=== PATIENT | male | born 1955 | race Caucasian/White ===

== ENCOUNTER 2019-02-22 13:44 | Outpatient (REF) | payer MEDICAID, SELFPAY ==
[2019-02-22 20:41] LABS: HGB 15.7 g/dL (13.5-17.5); Mean Corp. HGB Concentration 33.4 g/dL (32.0-36.0); Mean Corpuscular Hemoglobin 32.7 pg (27.0-33.0); Mean Corpuscular Volume 97.9 fL (80-95); Mean Platelet Volume 11.1 fL (8.0-11.0); Platelet Count 239 x1000/uL (130-400); RBC Distribution Width 13.6 % (11.8-14.1); White Blood Cell Count 6.12 k/cumm (4.4-10.8)
[2019-02-22 21:18] LABS: ALT 44 U/L (12-78); AST 27 U/L (15-37); Albumin 4.2 g/dL (3.4-5.0); Alkaline Phosphatase 83 U/L (46-116); BUN 19 mg/dL (7-18); Bilirubin, Total 0.4 mg/dL (0.2-1.0); CREATININE 1.39 mg/dL (0.70-1.30); Calcium 9.5 mg/dL (8.5-10.1); Chloride 103 mmol/L (98-107); Estimated GFR 51.95 (mL/min/1.73m2); Glucose 90 mg/dL (70-100); Potassium 4.7 mmol/L (3.5-5.1); Sodium 139 mmol/L (136-145); TSH 5.52 uIU/mL (0.358-3.74); Total Protein 7.8 g/dL (6.4-8.2); Vitamin B12 262 pg/mL (193-986)
[2019-02-25 13:26] LABS: Albumin 60.6 % (55.8-66.1); Total Protein 7.7 g/dl (6.3-8.2)
== END 2019-02-22 14:04 ==
LOC: NCHCN 13:44
PROVIDERS: PCP Family Medicine; Visit Provider Internal Medicine
DX: R53.83 Other fatigue (principal); G62.9 Polyneuropathy, unspecified
CPT/HCPCS: 80053; 85027; 82607; 84165; 84443

== ENCOUNTER 2019-03-05 17:12 | Emergency (ER) | payer MEDICAID, SELFPAY ==
[2019-03-05] VITALS (34 sets, daily range): BP systolic 105–144; BP diastolic 64–89; PULSE 63–84; RESP 14–38; TEMP 36.4–36.7; O2SAT 95–99
[2019-03-05 17:30] LABS: Abs Immature Grans 0.02 k/cumm (0.0-0.09); Absolute Basophil Count 0.01 k/cumm (0.0-0.2); Absolute Eosinophil Count 0.13 k/cumm (0.0-0.7); Absolute Lymphocyte Count 3.54 k/cumm (1.2-3.4); Absolute Monocyte Count 0.17 k/cumm (0.11-0.7); Absolute Neutrophil Count 2.49 k/cumm (1.2-6.7); Basophils % 0.2; HCT 48.9 % (40.0-50.0); Immature Grans % 0.3; Lymphocytes % 55.7; Mean Corp. HGB Concentration 32.7 g/dL (32.0-36.0); Mean Corpuscular Hemoglobin 32.5 pg (27.0-33.0); Mean Corpuscular Volume 99.2 fL (80-95); Monocytes % 2.7; Neutrophils % 39.1; Platelet Count 299 x1000/uL (130-400); RBC 4.93 m/cumm (4.50-6.00); RBC Distribution Width 13.7 % (11.8-14.1); White Blood Cell Count 6.36 k/cumm (4.4-10.8)
--- NOTE | 2019-03-05 17:33 | W.ED.GENAD ---
Discharge Plan Disposition Patient Disposition: HOME Condition: Good Discharge Details Chief Complaint: Dizzy/Sync Clinical Impression: Generalized weakness, Abdominal pain, Dehydration Primary Care Provider: Leslee Armenta ED Provider: Alfonzo Carrera [place] Meds and New Rx's Prescriptions: Continued ascorbic acid (vitamin C) [Vitamin C] 1,000 MG tablet 1,000 mg PO BID RF: 0 amitriptyline 25 MG tablet 25 mg PO HS RF: 0 duloxetine 30 MG capsule,delayed release(DR/EC) 90 mg PO DAILY Qty: 90 RF: 5 gabapentin 600 MG tablet 1,200 mg PO TID RF: 0 vitamin B complex 1 EACH capsule 1 cap PO DAILY RF: 0 Discharge Instructions Additional Instructions: Please continue to hydrate over the next 24 hours. Take it easy for the next 24 hours. Follow-up with your primary care doctor at the end of the week if not feeling back to normal. Return to ED if you develop any neurologic changes, chest pain, shortness of breath, worsening abdominal pain, other concerns or problems Referrals: Leslee Armenta [Primary Care Provider] - Discharge Data Discharge Date/Time-TO BE ENTERED AT DEPARTURE: 03/05/19 22:37 Medical Decision Making <Sara Escobar DO - Last Filed: 03/06/19 13:27> 63-year-old male with a history of kidney cancer status post right nephrectomy, hypertension who presents with a feeling of nausea, blurry vision and fatigue while driving prior to arrival. Also admits to abdominal pain that has since resolved. He states he has had similar episodes before which have been attributed to dehydration. EKG notes a rate of 82, sinus and right bundle branch block with left anterior fascicular block which is been seen in previous EKG. No focal deficits on exam. Patient has dry mucous membranes and conjunctival injection bilaterally. Differential diagnosis includes ACS, acute abdominal abnormality, electrolyte abnormality, metabolic disturbance, acute CVA, dehydration. Will place an IV, bolus IV fluids, labs, urinalysis, CT head, chest x-ray and CT abdomen and pelvis. 1914 --CT head and chest x-ray negative for acute findings. Labs reviewed and note a normal white blood cell count, and slight increase in creatinine and decrease in GFR. Lactate 3.9. Troponin negative. 2014 -- CT abdomen/pelvis negative for acute findings. Patient feels much better after IV fluids. Still with some headache. Will give another liter IV fluids, Toradol, Tylenol and plan for repeat lactate. 2049 -- Case endorsed to Dr. Carrera to follow-up on repeat lactate, reassessment after IVF/meds and final disposition. Medical Records Medical records reviewed: Yes I reviewed the patient's medical records. Imaging Data Radiologic Study: Radiologist's impression: Addendum created by Dawna Javed MD on 03/05/2019 7:17:38 PM EDT There is a typographical error in the report : under bone/joint it should: read mild degenerative changes are seen in the thoracic spine Addendum created by Dawna Javed MD on 03/05/2019 7:17:38 PM EDT There is a typographical error in the report : under bone/joint it should: read mild degenerative changes are seen in the thoracic spine Initial report created on 03/05/2019 7:16:41 PM EDT XR Chest, 2 Views EXAM DATE/TIME: 03/05/2019 6:05 PM CLINICAL HISTORY: 63 years old, male; Other: Weakness, fatigue, R/O pneumonia TECHNIQUE: Imaging protocol: XR of the chest, 2 views. COMPARISON: CTA THORAX/ABDOMEN/PELVIS 03/02/2018 7:35 PM FINDINGS: Lungs: Unremarkable. No consolidation. No lobar consolidation or CHF Pleural space: Unremarkable. No pleural effusion. No pneumothorax. Heart/Mediastinum: Unremarkable. No cardiomegaly. Bones/joints: Mild degenerative changes are seen in this breast. IMPRESSION: No acute findings . CT Head Without Contrast EXAM DATE/TIME: 03/05/2019 6:04 PM CLINICAL HISTORY: 63 years old, male; Other: Fatigue, blurry vision, R/O acute CVA TECHNIQUE: Imaging protocol: Computed tomography images of the head without contrast. Coronal and sagittal reformatted images were created and reviewed. Radiation optimization: All CT scans at this facility use at least one of these dose optimization techniques: automated exposure control; mA and/or kV adjustment per patient size (includes targeted exams where dose is matched to clinical indication); or iterative reconstruction. COMPARISON: No relevant prior studies available. FINDINGS: Brain: The ventricles and the cortical sulci are within normal limits. There is no evidence of acute hemorrhage, mass or shift. There is no evidence of an acute cortical or major vascular territory infarct. There is minimal low-attenuation within the periventricular white matter particularly the left frontal lobe which is nonspecific but may represent small vessel ischemic change/microangiopathy. No abnormal extra-axial collections are identified. Ventricles: No significant ventricular enlargement/hydrocephalus. Bones/joints: There is no acute bony abnormality Sinuses: No significant sinus opacification or fluid level. There is mucoperiosteal thickening involving the inferior frontal sinuses, frontal ethmoidal recesses and the ethmoid air cells. Mastoid air cells: No significant mastoid opacification Soft tissues: Subcutaneous soft tissues are unremarkable Vasculature: The vessels appear slightly dense which may be related to hematocrit or dehydration. IMPRESSION: No acute findings.If further evaluation for recent, acute or subacute ischemic change is indicated, MR correlation is recommended. CT Abdomen and Pelvis Without Contrast EXAM DATE/TIME: 03/05/2019 6:04 PM CLINICAL HISTORY: 63 years old, male; Other: Diffuse abd pain, R/O diverticulitis; Prior surgery; Surgery date: 6+ months; Surgery type: Appendectomy, RT nephrectomy TECHNIQUE: Imaging protocol: Axial computed tomography images of the abdomen and pelvis without contrast. Coronal and sagittal reformatted images were created and reviewed. Radiation optimization: All CT scans at this facility use at least one of these dose optimization techniques: automated exposure control; mA and/or kV adjustment per patient size (includes targeted exams where dose is matched to clinical indication); or iterative reconstruction. COMPARISON: CR LEFT HIP COMPLETE \T\ AP PELVIS 11/18/2016 11:19 AM FINDINGS: Liver: Evaluation of the liver is limited without IV contrast but no focal intrahepatic abnormality is identified. Gallbladder and bile ducts: No calcified gallstones. No gallbladder wall thickening or pericholecystic fluid. No evidence of biliary ductal dilatation. Pancreas: Pancreas is unremarkable Spleen: Spleen is unremarkable Adrenals: Adrenals are unremarkable Kidneys and ureters: There has been prior right nephrectomy. There is compensatory hypertrophy of the left kidney. There is no evidence of nephrolithiasis or hydronephrosis. There is no evidence of a discrete renal cortical mass. Stomach and bowel: The bowel is not completely opacified with contrast. Contrast is seen within the patient's stomach as well as fluid in the proximal small bowel. The distal small bowel/distal ileum and colon are not opacified. There are colonic diverticuli particularly noted within the sigmoid colon but there is no significant pericolonic inflammation to suggest acute diverticulitis. There is no evidence of bowel obstruction. There is no evidence of discrete mass or pneumatosis Appendix: Prior appendectomy. Intraperitoneal space: No free fluid, focal collections or free intraperitoneal air is identified. Vasculature: Coronary artery calcification is noted. There is no significant airspace consolidation at the lung bases. Pleural effusion is not seen. The aorta is non-aneurysmal. Lymph nodes: No significant adenopathy Bladder: Bladder is nondistended but otherwise unremarkable. Reproductive: Prostate gland, seminal vesicles are unremarkable Bones/joints: There is prominence of the lumbar lordosis. There are findings consistent with thoracolumbar spondylosis, disc disease. There is no acute or destructive bony abnormality. There is spondylolysis at L5-S1 without significant anterolisthesis. Soft tissues: Subcutaneous soft tissues are unremarkable IMPRESSION: 1. Diverticulosis but no significant pericolonic inflammation to suggest acute diverticulitis. 2. No acute findings identified in the abdomen or pelvis. 3. Mild thoracolumbar spondylosis. Spondylolysis at L5-S1. ECG Data Attestation: I personally reviewed and interpreted this ECG (s) as follows: Interpretation: Rate of 82, sinus, right bundle branch block, left anterior fascicular block. No acute ST elevation or depression. QTc 500. QRS 156 <Alfonzo Carrera MD - Last Filed: 03/05/19 22:30> Patient signed out to me pending finishing his second liter of fluid and a repeat lactic acid. He had presented with lightheadedness and general weakness. He had vague complaint of abdominal pain. Work-up including imaging of the head and abdomen by CT scan and chest by x-ray was unrevealing. Laboratory studies unremarkable except for the elevated lactic acid. The repeat lactic acid after 1-1/2 L of fluid was down to 3.2. Patient feels much better. He would like to go home. Patient instructed to continue oral hydration and follow-up with primary care at the end of the week if not feeling better. Return to ED for any changes including chest pain, abdominal pain, neurologic changes, other complaints. Lab Data Lab results reviewed: Yes I reviewed the patient's lab results. HPI <Sara Escobar DO - Last Filed: 03/06/19 13:27> General Mode of arrival: ambulatory. Date/Time Provider Initiated Documentation: 03/05/19 17:17. Limitations to Documentation: no limitations. Information obtained by: patient. HPI Narrative: Patient is a 63-year-old male with a history of kidney cancer with right nephrectomy, hypertension who presents with feeling weak with blurry vision and sweating while driving the car prior to arrival. Patient states he has had similar episodes with dehydration in the past. He states he had some nausea but was able to get out of his car and walk around. He states he feels generally weak and his mouth is dry at this time. He also admits to having abdominal pain at the onset which was diffuse, and felt like a knot which was 6/10 at its worst and is currently 4/10. He states his last bowel movement was today within normal limits. He admits to a mild headache 1/10. He denies any neck pain. He denies fever, chest pain, shortness of breath, vomiting, diarrhea, sore throat, cough states he has been otherwise eating and drinking normally. He denies any alcohol use. He smokes marijuana but denies any other illicit drug use. He denies any blurry vision at present. Related Data Home Medications Medication Instructions Recorded Confirmed gabapentin 1,200 mg PO TID 02/17/17 04/09/18 vitamin B complex 1 cap PO DAILY 02/17/17 04/09/18 amitriptyline 25 mg PO HS tab-cap 04/10/17 04/09/18 ascorbic acid (vitamin C) [Vitamin 1,000 mg PO BID 04/10/17 04/09/18 C] duloxetine 90 mg PO DAILY #90 tab-cap 04/25/17 Previous Rx's Medication Instructions Recorded duloxetine 90 mg PO DAILY #90 tab-cap 04/25/17 Allergies Allergy/AdvReac Type Severity Reaction Status Date / Time No Known Drug Allergies Allergy Unverified 04/09/18 11:06 General Stated Complaint: Dizzy/Sync LEANNA: 3 Review of Systems <Sara Escobar DO - Last Filed: 03/06/19 13:27> Review of Systems All systems reviewed & are unremarkable except as noted in HPI and below Constitutional Reports as per HPI, Denies chills, Reports fatigue, Denies fever(s) and Reports headache(s) Eyes Denies blurry vision ENT Denies dizziness, Reports headache(s), Denies sore throat and Denies throat swelling Cardiovascular Denies chest pain and Denies dyspnea Respiratory Denies cough and Denies dyspnea Gastrointestinal Reports abdominal pain, Denies diarrhea, Reports nausea and Denies vomiting Genitourinary Denies hematuria and Denies dysuria Musculoskeletal Denies back pain and Denies numbness Integumentary/Breasts Denies lesions and Denies rash Neurologic Denies dizziness, Reports headache(s), Denies focal weakness and Denies numbness Endocrine Reports fatigue Allergic/Immunologic Denies throat swelling PFSH <Sara Escobar DO - Last Filed: 03/06/19 13:27> Medical History Arthralgia Exertional shortness of breath History of kidney cancer Hypertension Knee joint pain MRSA (methicillin resistant staph aureus) culture positive Peripheral neuropathy Pes cavus Reactive depression (situational) Tinnitus Surgical History Colonoscopy - IV Sedation Social History Smoking/Tobacco Use Status: Never Alcohol Intake: never Drug use: Occasionally Substance use type: marijuana Do you feel safe at home: Yes Do you feel safe in your relationship?: Yes Exam <Sara Escobar DO - Last Filed: 03/06/19 13:27> Const General: cooperative, healthy appearing and no acute distress [facility] Head: normal to inspection Face and sinus: normal facial exam Eyes General: appearance normal, both eyes and all related structures Conjunctivae: conjunctival abnormality bilaterally conjunctival injection diffuse Pupils: PERRL EOM: EOM intact bilaterally Neck Neck: normal visual inspection and No submandibular swelling Lymphatic: no lymphadenopathy noted Chest Chest: normal inspection of the chest and no tenderness Resp Effort & Inspection: normal respiratory effort and able to speak in complete sentences Auscultation: clear to auscultation bilaterally Cardio Rate: regular rate Rhythm: regular rhythm GI Inspection: normal to inspection Palpation: soft, not firm, not rigid and nontender Auscultation: normal bowel sounds Back/Spine/Pelvis Back: no CVA tenderness Thoracic/Lumbar Spine: thoracic and lumbar spine normal to inspection Pelvis: no pain with anterior-posterior compression Skin General skin exam: no rashes or lesions noted Neuro General: alert, awake and oriented x3 Cranial Nerves: CN's II-XI intact bilaterally Cognition: normal cognition Speech: speech normal Motor: muscle tone normal throughout and strength 5/5 throughout Sensory Exam: no sensory deficits noted Extrem General: normal to inspection, full ROM, normal capillary refill, no calf tenderness bilaterally and no edema Psych Appearance: grossly normal Mental Status: mental status grossly normal Speech and Movement: speech and movement normal Affect: normal affect Course <Sara Escobar, DO - Last Filed: 03/06/19 13:27> Vital Signs Temperature 97.5 F L 03/05/19 17:19 Pulse 82 03/05/19 17:19 Respiratory Rate 18 03/05/19 17:19 Blood Pressure 124/82 03/05/19 17:19 Pulse Oximetry 95 03/05/19 17:19 Temperature 97.5 F L 03/05/19 17:19 Temperature Source Skin 03/05/19 17:19 Pulse 82 03/05/19 17:19 Respiratory Rate 18 03/05/19 17:19 Blood Pressure 124/82 03/05/19 17:19 Blood Pressure Position Sitting 03/05/19 17:19 Pulse Oximetry 95 03/05/19 17:19 Oxygen Delivery Method Room Air 03/05/19 17:19 Oxygen Flow Rate 0 03/05/19 17:19 Lab/Test Results Lab/Test Results: Laboratory Tests Range/Units 03/05/19 17:22 WBC (4.4-10.8) k/cumm 6.36 RBC (4.50-6.00) m/cumm 4.93 Hgb (13.5-17.5) g/dL 16.0 Hct (40.0-50.0) % 48.9 MCV (80-95) fL 99.2 H MCH (27.0-33.0) pg 32.5 MCHC (32.0-36.0) g/dL 32.7 RDW (11.8-14.1) % 13.7 Plt Count (130-400) x1000/uL 299 MPV (8.0-11.0) fL 11.0 Immature Gran % 0.3 Neutrophils % 39.1 Lymphocytes % 55.7 Monocytes % 2.7 Eosinophils % 2.0 Basophils % 0.2 Absolute Neutrophils (1.2-6.7) k/cumm 2.49 Absolute Lymphocytes (1.2-3.4) k/cumm 3.54 H Absolute Monocytes (0.11-0.7) k/cumm 0.17 Absolute Eosinophils (0.0-0.7) k/cumm 0.13 Absolute Basophils (0.0-0.2) k/cumm 0.01 Sign Out <Sara Escobar DO - Last Filed: 03/06/19 13:27> Sign Out Data: Sign Out Comment: Case endorsed to follow-up on results of CT abdomen and pelvis, urinalysis, repeat lactate, and final disposition. Last updated by Sara Escobar DO at 03/05/19 19:43
--- NOTE | 2019-03-05 17:38 | NUR.NOTE ---
at bedside for eval Nursing Note:
[2019-03-05 17:47] LABS: ALT 32 U/L (12-78); AST 14 U/L (15-37); Alkaline Phosphatase 83 U/L (46-116); Anion Gap 10.6 mmol/L (3-11); BUN 22 mg/dL (7-18); Bilirubin, Total 0.3 mg/dL (0.2-1.0); CO2 26.4 mmol/L (21.0-32.0); CREATININE 1.81 mg/dL (0.70-1.30); Calcium 9.6 mg/dL (8.5-10.1); Chloride 100 mmol/L (98-107); Glucose 233 mg/dL (70-100); Sodium 137 mmol/L (136-145); Total Protein 8.1 g/dL (6.4-8.2); Troponin I < 0.05 ng/mL (0.00-0.06)
--- NOTE | 2019-03-05 18:00 | DI.CT_ITS ---
SYMPTOMS/DIAGNOSIS: DIFFUSE ABD PAIN, ? DIVERTICULITIS, FATIGUE, BLURRY VISION, ? ACUTE CVA CT BRAIN: Noncontrast examination was performed. There is a normal rosenberg/white matter differentiation. No acute intracranial hemorrhage, acute territorial infarct, midline shift or mass effect is identified. The ventricles are intact. The basilar cisterns are patent. There is mucosal thickening in the ethmoid air cells bilaterally. No fluid levels are seen. The mastoid air cells are well pneumatized. The calvarium is intact. IMPRESSION: No acute intracranial process. CT SCAN OF THE ABDOMEN AND PELVIS: CT scan of the abdomen and pelvis was performed without intravenous contrast material. Oral contrast was administered and has advanced to the distal small bowel. No acute findings are seen in the lung bases. Lack of IV contrast does limit evaluation of the abdominal and pelvic organs. The unenhanced liver appears grossly unremarkable. The gallbladder is negative. There is no biliary ductal dilatation. The unenhanced pancreas, spleen and adrenal glands are unremarkable. There is a right nephrectomy. There is compensatory hypertrophy of the left kidney. No evidence of nephrolithiasis or obstructive uropathy is identified. The urinary bladder is intact. The reproductive organs are unremarkable. There is diverticulosis of the colon but no evidence of acute diverticulitis. The patient is status post appendectomy. No evidence of bowel obstruction or bowel inflammatory or infectious process is seen. The abdominal aorta is of normal caliber. No significant abdominal or pelvic adenopathy, ascites or pneumoperitoneum is present. There is L 5 spondylolysis but no significant spondylolisthesis. Mild degenerative changes are seen in the spine. IMPRESSION: 1. No acute abnormality seen in the abdomen or pelvis. 2. Colonic diverticulosis but no evidence of acute diverticulitis.
--- NOTE | 2019-03-05 18:04 | DI.RAD_ITS ---
SYMPTOMS/DIAGNOSIS: WEAKNESS, FATIGUE, ? PNEUMONIA CHEST: Frontal and lateral views. The heart size and pulmonary vasculature are within normal limits. The lungs are clear. No effusions or pneumothoraces are identified. Degenerative changes are seen in the spine. IMPRESSION: No acute pulmonary process.
[2019-03-05 18:15] LABS: Lactate-non-spesis 3.9 mmol/l (0.6-1.4)
[2019-03-05] MEDS: Normal Saline 500 ML IV ×2 (18:18→19:26)
--- NOTE | 2019-03-05 19:10 | DI.VRAD_ITS ---
EXAM: CT Head Without Contrast EXAM DATE/TIME: 03/05/2019 6:04 PM CLINICAL HISTORY: 63 years old, male; Other: Fatigue, blurry vision, R/O acute CVA TECHNIQUE: Imaging protocol: Computed tomography images of the head without contrast. Coronal and sagittal reformatted images were created and reviewed. Radiation optimization: All CT scans at this facility use at least one of these dose optimization techniques: automated exposure control; mA and/or kV adjustment per patient size (includes targeted exams where dose is matched to clinical indication); or iterative reconstruction. COMPARISON: No relevant prior studies available. FINDINGS: Brain: The ventricles and the cortical sulci are within normal limits. There is no evidence of acute hemorrhage, mass or shift. There is no evidence of an acute cortical or major vascular territory infarct. There is minimal low-attenuation within the periventricular white matter particularly the left frontal lobe which is nonspecific but may represent small vessel ischemic change/microangiopathy. No abnormal extra-axial collections are identified. Ventricles: No significant ventricular enlargement/hydrocephalus. Bones/joints: There is no acute bony abnormality Sinuses: No significant sinus opacification or fluid level. There is mucoperiosteal thickening involving the inferior frontal sinuses, frontal ethmoidal recesses and the ethmoid air cells. Mastoid air cells: No significant mastoid opacification Soft tissues: Subcutaneous soft tissues are unremarkable Vasculature: The vessels appear slightly dense which may be related to hematocrit or dehydration. IMPRESSION: No acute findings.If further evaluation for recent, acute or subacute ischemic change is indicated, MR correlation is recommended. Dictated and Authenticated by: Dawna Javed MD. Ordering:ALEX Ruiz MD
--- NOTE | 2019-03-05 19:17 | DI.VRAD_ITS ---
Addendum created by Dawna Javed MD on 03/05/2019 7:17:38 PM EDT There is a typographical error in the report : under bone/joint it should: read mild degenerative changes are seen in the thoracic spine Initial report created on 03/05/2019 7:16:41 PM EDT EXAM: XR Chest, 2 Views EXAM DATE/TIME: 03/05/2019 6:05 PM CLINICAL HISTORY: 63 years old, male; Other: Weakness, fatigue, R/O pneumonia TECHNIQUE: Imaging protocol: XR of the chest, 2 views. COMPARISON: CTA THORAX/ABDOMEN/PELVIS 03/02/2018 7:35 PM FINDINGS: Lungs: Unremarkable. No consolidation. No lobar consolidation or CHF Pleural space: Unremarkable. No pleural effusion. No pneumothorax. Heart/Mediastinum: Unremarkable. No cardiomegaly. Bones/joints: Mild degenerative changes are seen in this breast. IMPRESSION: No acute findings Dictated and Authenticated by: Dawna Javed MD. Ordering:ALEX Ruiz MD
[2019-03-05] MEDS: Omnipaque 350 MG/ML 50 ML BTL PO (19:39)
--- NOTE | 2019-03-05 19:43 | NUR.NOTE ---
pt to ct Nursing Note:
[2019-03-05 19:46] LABS: Bilirubin Negative (Negative); Blood Trace-intact (Negative); Clarity Clear (Clear); Glucose Negative (Negative); Ketones Negative (Negative); Leukocyte Esterase Negative (Negative); Nitrite Negative (Negative); Specific Gravity 1.025 (1.005-1.025); Urobilinogen 0.2 EU/dL (Up TO 0.2); pH 5.5 (5-8)
[2019-03-05 20:10] LABS: Bacteria Negative HPF (Negative); Crystals Negative HPF (Negative); Epithelial Cells Negative HPF (Negative); Mucus Negative (Negative); Other Cells Few Renal (Negative)
[2019-03-05 20:11] LABS: C & S Indicated? Yes
--- NOTE | 2019-03-05 20:17 | DI.VRAD_ITS ---
EXAM: CT Abdomen and Pelvis Without Contrast EXAM DATE/TIME: 03/05/2019 6:04 PM CLINICAL HISTORY: 63 years old, male; Other: Diffuse abd pain, R/O diverticulitis; Prior surgery; Surgery date: 6+ months; Surgery type: Appendectomy, RT nephrectomy TECHNIQUE: Imaging protocol: Axial computed tomography images of the abdomen and pelvis without contrast. Coronal and sagittal reformatted images were created and reviewed. Radiation optimization: All CT scans at this facility use at least one of these dose optimization techniques: automated exposure control; mA and/or kV adjustment per patient size (includes targeted exams where dose is matched to clinical indication); or iterative reconstruction. COMPARISON: CR LEFT HIP COMPLETE \T\ AP PELVIS 11/18/2016 11:19 AM FINDINGS: Liver: Evaluation of the liver is limited without IV contrast but no focal intrahepatic abnormality is identified. Gallbladder and bile ducts: No calcified gallstones. No gallbladder wall thickening or pericholecystic fluid. No evidence of biliary ductal dilatation. Pancreas: Pancreas is unremarkable Spleen: Spleen is unremarkable Adrenals: Adrenals are unremarkable Kidneys and ureters: There has been prior right nephrectomy. There is compensatory hypertrophy of the left kidney. There is no evidence of nephrolithiasis or hydronephrosis. There is no evidence of a discrete renal cortical mass. Stomach and bowel: The bowel is not completely opacified with contrast. Contrast is seen within the patient's stomach as well as fluid in the proximal small bowel. The distal small bowel/distal ileum and colon are not opacified. There are colonic diverticuli particularly noted within the sigmoid colon but there is no significant pericolonic inflammation to suggest acute diverticulitis. There is no evidence of bowel obstruction. There is no evidence of discrete mass or pneumatosis Appendix: Prior appendectomy. Intraperitoneal space: No free fluid, focal collections or free intraperitoneal air is identified. Vasculature: Coronary artery calcification is noted. There is no significant airspace consolidation at the lung bases. Pleural effusion is not seen. The aorta is non-aneurysmal. Lymph nodes: No significant adenopathy Bladder: Bladder is nondistended but otherwise unremarkable. Reproductive: Prostate gland, seminal vesicles are unremarkable Bones/joints: There is prominence of the lumbar lordosis. There are findings consistent with thoracolumbar spondylosis, disc disease. There is no acute or destructive bony abnormality. There is spondylolysis at L5-S1 without significant anterolisthesis. Soft tissues: Subcutaneous soft tissues are unremarkable IMPRESSION: 1. Diverticulosis but no significant pericolonic inflammation to suggest acute diverticulitis. 2. No acute findings identified in the abdomen or pelvis. 3. Mild thoracolumbar spondylosis. Spondylolysis at L5-S1. Dictated and Authenticated by: Dawna Javed MD. Ordering:ALXE Ruiz MD
[2019-03-05] MEDS: Ketorolac 30 MG/ML VIAL IVP (20:31)
[2019-03-05] MEDS: Acetaminophen 500 MG TAB 1000 MG PO (20:32)
[2019-03-05] MEDS: Normal Saline 1,000 ML 1000 ML IV (20:33)
[2019-03-05 21:53] LABS: Lactate-non-spesis 3.2 mmol/l (0.6-1.4)
== END 2019-03-05 22:37 | disposition home or self-care (01) ==
PROVIDERS: Physician Assistant; Emergency Provider Emergency Medicine; PCP Family Medicine
DX: R53.1 Weakness (principal); R10.9 Unspecified abdominal pain; E86.0 Dehydration; R51 Headache; I10 Essential (primary) hypertension; Z90.5 Acquired absence of kidney
CPT/HCPCS: 36415; 80053; 93005; 96361; 96374; 99285; 70450; 71046; 74176; 81003; 81015; 83605; 83735; 84484; 85025; 87086; 93010; J1885; Q9967

== ENCOUNTER 2019-03-11 15:41 | Outpatient (REF) | payer MEDICAID, SELFPAY ==
[2019-03-11 22:03] LABS: Anion Gap 15.4 mmol/L (3-11); BUN 21 mg/dL (7-18); CO2 25.6 mmol/L (21.0-32.0); CREATININE 1.35 mg/dL (0.70-1.30); Calcium 10.3 mg/dL (8.5-10.1); Chloride 97 mmol/L (98-107); Estimated GFR 53.73 (mL/min/1.73m2); FREE T4 0.57 ng/dL (0.76-1.46); Glucose 108 mg/dL (70-100); NT-proBNP 21 pg/mL; Potassium 4.2 mmol/L (3.5-5.1); Sodium 138 mmol/L (136-145); TSH 5.64 uIU/mL (0.36-3.74)
== END 2019-03-11 16:01 ==
LOC: NCHCN 15:41
PROVIDERS: PCP Family Medicine; Visit Provider Internal Medicine
DX: I10 Essential (primary) hypertension (principal); R94.6 Abnormal results of thyroid function studies
CPT/HCPCS: 80048; 83880; 84439; 84443

== ENCOUNTER 2019-03-12 08:20 | Outpatient (CLI) | payer MEDICAID, SELFPAY ==
--- NOTE | 2019-04-18 06:49 | CER_ITS ---
[facility] Monitor DATE OF DICTATION April 17, [address] March 12- April 10, 2019 Baseline rhythm sinus. No atrial fibrillation noted. Less than 1% ventricular ectopy. No critical, no serious events. Three stable events. One occurring during sinus rhythm, two manually detected events; One occurring d uring sinus arrhythmia (symptoms of flutter); One occurring during sinus rhythm, no symptoms. Florian Abdalla M.D. ALBERT/murphy T - 04/18/2019
== END 2019-03-12 08:40 ==
PROVIDERS: PCP Family Medicine; Visit Provider Internal Medicine
DX: R55 Syncope and collapse (principal)
CPT/HCPCS: 93270

== ENCOUNTER 2019-04-23 08:38 | Outpatient (REF) | payer MEDICARE, MEDICAID, SELFPAY ==
[2019-04-23 13:04] LABS: TSH 1.36 uIU/mL (0.36-3.74)
== END 2019-04-23 08:58 ==
LOC: NCHCN 08:38
PROVIDERS: PCP Family Medicine; Visit Provider Internal Medicine
DX: E03.9 Hypothyroidism, unspecified (principal)
CPT/HCPCS: 84439; 84443

== ENCOUNTER 2019-09-19 17:13 | Emergency (ER) | payer MEDICARE, SELFPAY ==
[2019-09-19] VITALS (23 sets, daily range): BP systolic 119–126; BP diastolic 58–92; PULSE 65–93; RESP 14–22; TEMP 36.4; O2SAT 89–98
--- NOTE | 2019-09-19 17:17 | W.ED.GENAD ---
Discharge Plan Disposition Patient Disposition: HOME Condition: Good Discharge Details Chief Complaint: Dizzy/Sync Clinical Impression: Syncope, Pneumonia, Acute dehydration Primary Care Provider: Leslee Armenta ED Provider: Harpreet Lundberg Home Meds and New Rx's Prescriptions: New amoxicillin-pot clavulanate [Augmentin] 875-125 mg tablet 1 tab PO BID Qty: 20 RF: 0 Continued ascorbic acid (vitamin C) [Vitamin C] 1,000 MG tablet 1,000 mg PO BID RF: 0 amitriptyline 25 MG tablet 25 mg PO HS RF: 0 duloxetine 30 MG capsule,delayed release(DR/EC) 90 mg PO DAILY Qty: 90 RF: 5 gabapentin 600 MG tablet 1,200 mg PO TID RF: 0 vitamin B complex 1 EACH capsule 1 cap PO DAILY RF: 0 Discharge Instructions Instructions: Dehydration (ED), Pneumonia (ED) Additional Instructions: At this time your symptoms appear to be secondary to not drinking enough water at all during the day. There also appears to be a small amount of pneumonia on your chest x-ray. Please take the antibiotic as directed. As we discussed please make sure that you are drinking 10 to 12 cups of water per day, and pacing yourself throughout the day. If you notice any worsening of your symptoms, or any new symptoms such as vomiting, diarrhea, fever, chills, shortness of breath, chest pain, numbness, weakness, or fainting , please return immediately to the emergency department for reevaluation. Please follow up with your primary care provider as soon as possible for reassessment and reevaluation. As always, it was a pleasure participating in your medical care today. Referrals: Leslee Armenta [Primary Care Provider] - Medical Decision Making This is a very pleasant 63-year-old male with a past medical history of hypertension, kidney cancer, peripheral neuropathy, spinal stenosis, right-sided nephrectomy, appendectomy and cholecystectomy who presents today for evaluation of syncope. Patient states that he has not been drinking anything throughout the day, he plowed his driveway and then snow plowed another person's driveway, he had no chest pain or shortness of breath at all when this occurred. And then after all of this he sat down to rest, while sitting down he felt lightheaded, he passed out for a brief second, did not fall or hit his head. He did not have any seizure-like episode. He came to almost immediately. He admits to seeing stars, having his vision go black and white, but had no associated chest pain, significant chest tightness, or shortness of breath. Currently is chest pain-free. Patient denies any numbness tingling or weakness. He denies any other vision changes or complaints. He does admit to a mild cough for the last few days. Of note in February roughly 6 to 7 months ago patient had nearly identical episode of nonexertional syncope. It occurred after he had not been drinking much, work-up at that time was unremarkable, Holter monitor at that time was also unremarkable. Patient has no other complaints at this time. He does state that this feels like the last time that he was here for this. Exam demonstrates no focal neurologic deficits, no concerning red flags of tearing chest pain, significant chest pain or other abnormality. He denies any trauma to his head. Differential is broad, but certainly does include dehydration like his last episodes, however central etiology, is also on the differential. We will rehydrate, get a CT scan of his head, chest x-ray to rule out mediastinal widening and to evaluate for infiltrate secondary to his cough. Will closely monitor and reassess. 7:16 PM Laboratory work-up has returned unremarkable, troponin is normal, EKG is completely unchanged from his old right bundle branch block. CT head is negative for acute process. Chest x-ray shows concern for mild infiltrate concerning for potential bronchitis versus viral etiology, however with the patient's cough I am concerned more for bacterial etiology. Renal function is slightly worse than normal at 2 for his creatinine. BUN is elevated. Patient feels much better and is asking to be discharged to go home. At this time with his relatively unremarkable work-up and signs and symptoms. Clinically consistent with dehydration as a cause for his passing out, especially in light of the similarity with his past episodes, with no evidence of acute life-threatening etiology at this time, negative CT scan of the head, and signs and symptoms clinically inconsistent with ACS, dissection, or acute intracranial etiology he will be discharged home. Discussed red flags for which to return. Recommend drinking 10 to 12 cups of water per day, will give the first dose of his antibiotic for his pulmonary infection here, and a prescription for home use. I have extensively reviewed the treatment plan and discharge instructions with the patient and their family. I have addressed all patient concerns at this time. The patient and family was made aware of what symptoms to monitor for that would warrant a return to the emergency department. Discussed the plan with the patient and family, they demonstrate verbal understanding and agreement with our assessment and plan at this time. EKG 17: 22 Rate 73, sinus rhythm, PA 184, QTc 450, QRS 150, right bundle branch block sinus rhythm no significant acute change from prior EKG on 03/05/2019 no evidence of STEMI FINDINGS: Lungs: Low lung volumes causes crowding of the bronchovascular structures. Nevertheless, there is mild bilateral perihilar haziness and streak like opacifications. No large airspace consolidations are noted. Pleural space: Unremarkable. No pleural effusion. No pneumothorax. Heart/Mediastinum: The heart is moderately enlarged. Bones/joints: No acute abnormality or aggressive osseous lesion. IMPRESSION: Interstitial/perihilar findings may be related to crowding of bronchovascular structures from low lung volumes, however mild interstitial disease perhaps related to a viral illness/bronchitis should be entertained in the appropriate clinical setting. Thank you for allowing us to participate in the care of your patient. Dictated and Authenticated by: Lucian Fine MD 09/19/2019 6:04 PM Eastern Time ([place] & [place]) IMPRESSION: Negative for acute intracranial pathology. ASSESSMENT: ASPECTS ([place] Stroke Program Early CT Score) is 10. Thank you for allowing us to participate in the care of your patient. Dictated and Authenticated by: Lucian Fine MD [facility] General Date/Time Provider Initiated Documentation: 09/19/19 17:16. HPI Narrative: This is a very pleasant 63-year-old male with a past medical history of hypertension, kidney cancer, peripheral neuropathy, spinal stenosis, right-sided nephrectomy, appendectomy and cholecystectomy who presents today for evaluation of syncope. Patient states that he has not been drinking anything throughout the day, he plowed his driveway and then snow plowed another person's driveway, he had no chest pain or shortness of breath at all when this occurred. And then after all of this he sat down to rest, while sitting down he felt lightheaded, he passed out for a brief second, did not fall or hit his head. He did not have any seizure-like episode. He came to almost immediately. He admits to seeing stars, having his vision go black and white, but had no associated chest pain, significant chest tightness, or shortness of breath. Currently is chest pain-free. Patient denies any numbness tingling or weakness. He denies any other vision changes or complaints. He does admit to a mild cough for the last few days. Of note in February roughly 6 to 7 months ago patient had nearly identical episode of nonexertional syncope. It occurred after he had not been drinking much, work-up at that time was unremarkable, Holter monitor at that time was also unremarkable. Patient has no other complaints at this time. He does state that this feels like the last time that he was here for this. Related Data Home Medications Medication Instructions Recorded Confirmed gabapentin 1,200 mg PO TID 02/17/17 04/09/18 vitamin B complex 1 cap PO DAILY 02/17/17 04/09/18 amitriptyline 25 mg PO HS tab-cap 04/10/17 04/09/18 ascorbic acid (vitamin C) [Vitamin 1,000 mg PO BID 04/10/17 04/09/18 C] duloxetine 90 mg PO DAILY #90 tab-cap 04/25/17 amoxicillin-pot clavulanate 1 tab PO BID #20 tab 09/19/19 [Augmentin] Previous Rx's Medication Instructions Recorded duloxetine 90 mg PO DAILY #90 tab-cap 04/25/17 amoxicillin-pot clavulanate 1 tab PO BID #20 tab 09/19/19 [Augmentin] Allergies Allergy/AdvReac Type Severity Reaction Status Date / Time No Known Drug Allergies Allergy Unverified 09/19/19 18:26 General LEANNA: 3 Review of Systems All systems reviewed & are unremarkable except as noted in HPI and below [facility] Social History Smoking/Tobacco Use Status: Never Alcohol Intake: never Drug use: Occasionally Substance use type: marijuana Do you feel safe at home: Yes Do you feel safe in your relationship?: Yes Exam Narrative Exam Narrative: 1.Const: Well-nourished, Well-developed, appearing stated age 2.Eyes: PERRL, no conjunctival injection, and symmetrical lids. 3.ENT: Atraumatic external nose and ears. Notably dry MM. Neck: Symmetric, trachea midline, No thyromegaly. 4.CVS: +S1/S2, No murmurs or gallops. Peripheral pulses 2+ and equal in all extremities. Brisk capillary refill in all extremities. 5.RESP: Unlabored respiratory effort. Clear to auscultation bilaterally. No wheezes rales or rhonchi 6.GI: Soft, Nontender/Nondistended, No hepatosplenomegaly. No guarding or rebound. 7.MSK: Normocephalic/Atraumatic, Extremities w/o deformity or ttp No cyanosis or clubbing, Normal movement of all extremities 8.Skin: Warm, Dry. No rashes or lesions. 9.Neuro: adult ministries director II-XII grossly intact. Sensation grossly intact, no focal neurologic deficits. All 6 cardinal planes of vision are fully intact. No evidence of rotatory or vertical nystagmus. The patient demonstrated a normal xuziom-hxoh-lwjsnt, good dexterity. There was no evidence of dysdiadochokinesia. Patient was able to ambulate without difficulty. There was no wide-based gait. Romberg testing was normal. Vfpj-of-cjks testing was normal. Sensation was intact bilaterally as well as muscle strength bilaterally for all extremities. Patient was able to verbalize butter cup with no slurring, or miss pronunciation. 10.Psych: (AAO) x3. Appropriate mood and affect
[2019-09-19 17:37] LABS: Abs Immature Grans 0.02 k/cumm (0.0-0.09); Absolute Basophil Count 0.02 k/cumm (0.0-0.2); Absolute Eosinophil Count 0.34 k/cumm (0.0-0.7); Absolute Lymphocyte Count 4.22 k/cumm (1.2-3.4); Absolute Monocyte Count 0.43 k/cumm (0.11-0.7); Absolute Neutrophil Count 4.14 k/cumm (1.2-6.7); Basophils % 0.2; Eosinophils % 3.7; HCT 45.9 % (40.0-50.0); Immature Grans % 0.2 %; Mean Corp. HGB Concentration 34.9 g/dL (32.0-36.0); Mean Corpuscular Hemoglobin 33.1 pg (27.0-33.0); Mean Platelet Volume 10.8 fL (8.0-11.0); Monocytes % 4.7; Neutrophils % 45.2; Platelet Count 212 x1000/uL (130-400); RBC 4.83 m/cumm (4.50-6.00); RBC Distribution Width 13.7 % (11.8-14.1); White Blood Cell Count 9.17 k/cumm (4.4-10.8)
[2019-09-19] MEDS: Normal Saline 1,000 ML 1000 ML IV (17:48)
[2019-09-19 17:51] LABS: ALT 30 U/L (16-63); AST 24 U/L (15-37); Albumin 3.8 g/dL (3.4-5.0); Alkaline Phosphatase 69 U/L (46-116); Anion Gap 10.3 mmol/L (3-11); BUN 28 mg/dL (7-18); Bilirubin, Total 0.3 mg/dL (0.2-1.0); CO2 25.7 mmol/L (21.0-32.0); CREATININE 2.08 mg/dL (0.70-1.30); Calcium 8.5 mg/dL (8.5-10.1); Chloride 102 mmol/L (98-107); Estimated GFR 32.63 (mL/min/1.73m2); Glucose 147 mg/dL (74-106); PTT Activated 22.3 sec (21.0-31.4); Potassium 4.2 mmol/L (3.5-5.1); Prothrombin Time 10.2 sec (9.3-11.0); Sodium 138 mmol/L (136-145); Total Protein 7.2 g/dL (6.4-8.2); Troponin I < 0.05 ng/Ml (<0.06)
--- NOTE | 2019-09-19 17:53 | DI.RAD_ITS ---
EXAM: XR CHEST 2V PA LATERAL CLINICAL HISTORY: syncope TECHNIQUE: COMPARISON: XR CHEST 2V PA LATERAL from 03/05/2019 FINDINGS: There is a poor inspiration. Heart appears mildly enlarged. Crowding of the pulmonary markings is n oted at the lung bases, no gross lobar consolidation seen but there may be mild patchy consolidation. Upper lung zones appear clear. No pleural effusion seen. IMPRESSION: No gross lobar pneumonia. Mild patchy consolidation may be present in the lung bases, versus hypoinf lation. Please correlate clinically.
--- NOTE | 2019-09-19 17:53 | DI.CT_ITS ---
EXAM: CT HEAD WO CT HEAD WO CLINICAL HISTORY: syncope, r/o bleed. syncope, r/o bleed TECHNIQUE: Imaging Protocol: Axial computed tomography images with coronal and sagittal reformatted images were created and reviewed COMPARISON: CT HEAD WO from 03/05/2019 FINDINGS: The ventricular system is normal in appearance. No evidence of acute intracranial hemorrhage, mass effect, or midline shift. The orbital structures are unremarkable. The temporal bone structures appear intact. Calvarium: Normal. Visualized Paranasal sinuses/Mastoids: Clear. IMPRESSION: Normal cranial CT. DATA REPOSITORY: All CT scans at this facility are submitted to the National Radiology Data Registry (NRDR) Dose Index Registry (DIR) with the [employer] ([employer]). RADIATION OPTIMIZATION: All CT scans at this facility use at least one of these dose optimization te chniques: automated exposure control; mA and/or kV adjustment per patient size (includes targeted exa ms where dose is matched to clinical indication); or iterative reconstruction.
--- NOTE | 2019-09-19 18:04 | DI.VRAD_ITS ---
PROCEDURE INFORMATION: Exam: CT Head Without Contrast Exam date and time: 09/19/2019 5:28 PM Age: 63 years old Clinical indication: Syncope and collapse TECHNIQUE: Imaging protocol: Computed tomography of the head without contrast. Other technique: STROKE PROTOCOL was implemented. COMPARISON: CT HEAD WO 03/05/2019 6:28 PM FINDINGS: Brain: Normal. No hemorrhage. Unremarkable white matter. No mass effect. Ventricles: Normal. No ventriculomegaly. Bones/joints: Unremarkable. No acute fracture. Sinuses: There is fluid within the sinuses, consistent with sinusitis. Mastoid air cells: Visualized mastoid air cells are well aerated. Orbits: Unremarkable. Soft tissues: Unremarkable. IMPRESSION: Negative for acute intracranial pathology. ASSESSMENT: ASPECTS ([place] Stroke Program Early CT Score) is 10. Dictated and Authenticated by: Lucian Bentley MD. Ordering:LAKHWINDER Mullins MD
--- NOTE | 2019-09-19 18:04 | DI.VRAD_ITS ---
PROCEDURE INFORMATION: Exam: XR Chest, 2 Views Exam date and time: 09/19/2019 5:53 PM Age: 63 years old Clinical indication: Other: Syncope TECHNIQUE: Imaging protocol: XR of the chest Views: 2 views. COMPARISON: SC XR CHEST 2V PA LATERAL 03/05/2019 6:37 PM FINDINGS: Lungs: Low lung volumes causes crowding of the bronchovascular structures. Nevertheless, there is mild bilateral perihilar haziness and streak like opacifications. No large airspace consolidations are noted. Pleural space: Unremarkable. No pleural effusion. No pneumothorax. Heart/Mediastinum: The heart is moderately enlarged. Bones/joints: No acute abnormality or aggressive osseous lesion. IMPRESSION: Interstitial/perihilar findings may be related to crowding of bronchovascular structures from low lung volumes, however mild interstitial disease perhaps related to a viral illness/bronchitis should be entertained in the appropriate clinical setting. Dictated and Authenticated by: Lucian Bentley MD. Ordering:LAKHWINDER Mullins MD
[2019-09-19] MEDS: Normal Saline 500 ML IV (19:12)
[2019-09-19] MEDS: Amoxicillin 875/Clav. 125 TAB PO (19:29)
== END 2019-09-19 19:45 | disposition home or self-care (01) ==
PROVIDERS: Emergency Provider Student in an Organized Health Care Education/Training Program; PCP Family Medicine
DX: R55 Syncope and collapse (principal); E86.0 Dehydration; J18.9 Pneumonia, unspecified organism; I10 Essential (primary) hypertension
CPT/HCPCS: 36415; 80053; 93005; 96360; 96361; 99285; 70450; 71046; 84484; 85025; 85610; 85730; 93010; 99284

== ENCOUNTER 2020-02-27 13:58 | Outpatient (REF) | payer MEDICARE, SELFPAY ==
[2020-02-27 21:46] LABS: Anion Gap 13.3 mmol/L (3-11); BUN 23 mg/dL (7-18); CO2 23.7 mmol/L (21.0-32.0); CREATININE 1.44 mg/dL (0.70-1.30); Calcium 9.3 mg/dL (8.5-10.1); Chloride 101 mmol/L (98-107); Estimated GFR 49.71 (mL/min/1.73m2); FREE T4 0.85 ng/dL (0.76-1.46); Glucose 143 mg/dL (74-106); Potassium 4.4 mmol/L (3.5-5.1); Sodium 138 mmol/L (136-145); TSH 2.41 uIU/mL (0.36-3.74)
== END 2020-02-27 14:18 ==
LOC: NCHCN 13:58
PROVIDERS: PCP Family Medicine; Visit Provider Internal Medicine
DX: E03.9 Hypothyroidism, unspecified (principal); I10 Essential (primary) hypertension; N18.3 Chronic kidney disease, stage 3 (moderate); G62.9 Polyneuropathy, unspecified
CPT/HCPCS: 80048; 84439; 84443

== ENCOUNTER 2020-05-07 15:43 | Emergency (ER) | payer MEDICARE, SELFPAY ==
[2020-05-07 15:50] VITALS: BP 141/98; PULSE 103; RESP 16; TEMP 36.6; O2SAT 96
--- NOTE | 2020-05-07 16:21 | ED.GENADUL_ITS ---
Discharge Plan Disposition Patient Disposition: HOME Condition: Good Discharge Details Clinical Impression: Avulsion of soft tissue Primary Care Provider: Leslee Armenta ED Provider: Wendie Love Home Meds and New Rx's Prescriptions: Continued ascorbic acid (vitamin C) [Vitamin C] 1,000 MG tablet 1,000 mg PO BID RF: 0 duloxetine 30 MG capsule,delayed release(DR/EC) 90 mg PO DAILY Qty: 90 RF: 5 gabapentin 600 MG tablet 1,200 mg PO TID RF: 0 vitamin B complex 1 EACH capsule 1 cap PO DAILY RF: 0 cyanocobalamin (vitamin B-12) [Vitamin B-12] 1,000 mcg tablet 1,000 mcg PO DAILY RF: 0 levothyroxine 50 mcg tablet 50 mcg PO DAILY RF: 0 Discharge Instructions Instructions: Finger Laceration (ED), Skin Adhesive Care (ED) Additional Instructions: Keep wound clean, dry, covered. Please not apply any ointment over the adhesive as this may cause premature breakdown. Please monitor wound for signs infection including redness, warmth, drainage, increased pain, fever/chills. If you develop evidence of infection please seek care urgently once again. Please keep the bulky dressing in place for tonight. Tomorrow, you may wash with running water and soap and pat dry and cover. Please allow adhesive to come off naturally. Please follow-up with primary care next week for repeat wound reevaluation. Referrals: Leslee Armenta [Primary Care Provider] - Discharge Data Discharge Date/Time-TO BE ENTERED AT DEPARTURE: 05/07/20 16:57 Medical Decision Making Patient is a pleasant 64-year-old [id number] male presents today with chief complaint of laceration to the radial side of his left middle finger. Patient was working in his [employer] camp when he slipped with a knife and suffered a flap laceration. Denies any numbness or tingling. Last tetanus was in 2018. States he is not having pain at this time. However, he is very hesitant to move the flap as it does cause further pain. States this is bleeding profusely. On exam, patient has flap laceration that is fairly healed down. Difficult to assess how much of this is mobile at this time. And I did discuss usefulness of a digital block. He would like to move forward with this. Does not quite anxious regarding the procedure. He and I discussed her/benefits as well as expected procedural steps associated with a digital block. This was performed using standard sterile technique. 4 cc of 1% lidocaine plain was injected. This with good anesthetic effect. The wound was then copiously irrigated and flap was able to be lifted up. Flap is fairly superficial and his only on by a 2 mm tissue bridge. He and I discussed treatment options including leaving the flap in place as a biological dressing versus removing medicine applying adhesive to the wound tissue bed. He preferred the adhesive option. Even, the wound was copiously irrigated, flap was removed. No foreign body or debris was noted. A tourniquet was utilized to help with visualization as this tissue bed did have fairly brisk, but not arterial, bleeding. Thin layer of adhesive was applied. We discussed the care of the wound as well as adhesive. We discussed signs of infection when to seek care urgently once again. Advise follow-up with primary care for wound reevaluation. All his questions and concerns were addressed and he is agreement this plan. HPI General Mode of arrival: ambulatory . Date/Time Provider Initiated Documentation: 05/07/20 16:21 . Limitations to Documentation: no limitations . Information obtained by: patient and RN notes reviewed . History of Present Illness 64 year old M presents to the emergency department with the chief complaint of laceration left middle finger, described as mild (denies any pain at this time), and is localized to the left and upper extremity. Patient r eports no radiation. Patient started experiencing this minute(s) and it has been constant. No relieving factors improve symptom(s), No exacerbating factors reported . Patient notes no other symptoms.. Patient did receive the following treatments prior to arrival, none Related Data Home Medications Medication Instructions Recorded Confirmed gabapentin 1,200 mg PO TID 02/17/17 05/07/20 vitamin B complex 1 cap PO DAILY 02/17/17 05/07/20 ascorbic acid (vitamin C) [Vitamin 1,000 mg PO BID 04/10/17 05/07/20 C] duloxetine 90 mg PO DAILY #90 tab-cap 04/25/17 05/07/20 cyanocobalamin (vitamin B-12) 1,000 mcg PO DAILY 05/07/20 05/07/20 [Vitamin B-12] levothyroxine 50 mcg PO DAILY 05/07/20 05/07/20 Previous Rx's Medication Instructions Recorded duloxetine 90 mg PO DAILY #90 tab-cap 04/25/17 Allergies Allergy/AdvReac Type Severity Reaction Status Date / Time No Known Drug Allergies Allergy Unverified 05/07/20 15:52 General Stated Complaint: Laceration LEANNA: 4 Review of Systems Constitutional Constitutional: Reports as per HPI, Denies chills and Denies fever(s) Musculoskeletal Musculoskeletal: Reports as per HPI Integumentary/Breasts Skin/Breast: Reports as per HPI Neurologic Neurologic: Reports as per HPI, Denies sensory deficit and Denies paresthesias [facility] Medical History Arthralgia Exertional shortness of breath History of kidney cancer Hypertension Knee joint pain MRSA (methicillin resistant staph aureus) culture positive Peripheral neuropathy Pes cavus Reactive depression (situational) Tinnitus Surgical History Colonoscopy - IV Sedation 2008-normal Social History Smoking/Tobacco Use Status: Never Alcohol Intake: never Drug use: Occasionally Substance use type: marijuana Do you feel safe at home: Yes Do you feel safe in your relationship?: Yes Exam Const General: cooperative, healthy appearing, comfortable, no acute distress and well developed Nutritional Appearance: average body habitus and well nourished Orientation: alert and awake Resp Effort & Inspection: normal respiratory effort, able to speak in complete sentences and no respiratory distress Cardio Rate: regular rate Rhythm: regular rhythm Skin Trauma: laceration (flap as drawn below) Neuro General: patient alert and patient awake Cognition: normal cognition Speech: speech normal Gait: normal gait Sensory Exam: no sensory deficits noted Extrem Hand/finger images: 1. Flap laceration, superficial with no active bleeding. 2mm tissue bridge distally. Skin of flap is blanched, appears non-viable. Sensation intact distally. Full ROM of finger Psych Appearance: grossly normal and well kempt Mental Status: mental status grossly normal Speech and Movement: speech and movement normal Course Vital Signs Vital signs: Vital Signs Temperature 36.6 C 05/07/20 15:50 Pulse 103 H 05/07/20 15:50 Respiratory Rate 16 05/07/20 15:50 Blood Pressure 141/98 H 05/07/20 15:50 Pulse Oximetry 96 05/07/20 15:50 Temperature 36.6 C 05/07/20 15:50 Temperature Source Skin 05/07/20 15:50 Pulse 103 H 05/07/20 15:50 Respiratory Rate 16 05/07/20 15:50 Respiratory Effort Non-Labored 05/07/20 15:52 Blood Pressure 141/98 H 05/07/20 15:50 Blood Pressure Position Sitting 05/07/20 15:50 Pulse Oximetry 96 05/07/20 15:50 Oxygen Delivery Method Room Air 05/07/20 15:50 Oxygen Flow Rate 0 05/07/20 15:50 Pain Level 0 05/07/20 15:50
[2020-05-07 16:47] VITALS: BP 141/98; PULSE 90; RESP 16; TEMP 36.6; O2SAT 96
--- NOTE | 2020-05-07 16:58 | NUR.NOTE ---
Nursing Note:bulky dressing applied per provider.
== END 2020-05-07 16:57 | disposition home or self-care (01) ==
PROVIDERS: Emergency Provider Physician Assistant; PCP Family Medicine
DX: S61.213A Laceration without foreign body of left middle finger without damage to nail, initial encounter (principal); W26.0XXA Contact with knife, initial encounter; I10 Essential (primary) hypertension
CPT/HCPCS: 12001

== ENCOUNTER 2020-06-17 19:10 | Emergency (ER) | payer MEDICARE, SELFPAY ==
--- NOTE | 2020-06-17 19:15 | DI.RAD_ITS ---
EXAM: XR FEMUR LT CLINICAL HISTORY: Fall, R/O Fracture. TECHNIQUE: 2D digital imaging was performed. COMPARISON: No exams were available for comparison FINDINGS: BONES: No acute fracture is present. No bony destructive lesion is seen. Mild degenerative changes of the hip. There is a small effusion in the knee. SOFT TISSUE: Normal. IMPRESSION: No acute fracture or dislocation. DATA REPOSITORY: RADIATION DOSE DELIVERED:
--- NOTE | 2020-06-17 19:17 | W.ED.GENAD ---
Discharge Plan Disposition Patient Disposition: HOME Condition: Stable Discharge Details Clinical Impression: Muscle strain of left lower extremity Primary Care Provider: Arsalan Monroe ED Provider: Mela Gunter Home Meds and New Rx's Prescriptions: No Action gabapentin 600 MG tablet 600 mg PO TID RF: 0 duloxetine 30 MG capsule,delayed release(DR/EC) 40 mg PO DAILY RF: 0 cyanocobalamin (vitamin B-12) [Vitamin B-12] 1,000 mcg tablet 1,000 mcg PO DAILY RF: 0 levothyroxine 50 mcg tablet 50 mcg PO DAILY RF: 0 Discharge Instructions Instructions: Muscle Strain (ED) Additional Instructions: Follow up with primary care provider in 3-5 days. Return to ED sooner if any worsening or concerns. Increase oral fluids. Please take Tylenol or Ibuprofen with food every 4-6 hours as needed for pain and swelling. Wear splint as needed for comfort. Toe-touch weightbearing advance as tolerated. Follow-up with Ortho in 1 to 2 weeks if continued pain. Rest, ice, compression, elevation. Referrals: Red Lovelace MD [ [facility] ST[facility]FF PHYSICIAN] - Medical Decision Making 64-year-old male presents to the ED with chief complaint of left thigh pain after a fall earlier prior to arrival. Patient states he slipped on the ice and fell backwards with his knee bent in front of him. He is complaining of left proximal above the knee pain. He denies any loss of consciousness no neck or back pain no other injuries noted. He has a history of hypothyroidism. He is alert and oriented on initial exam. Imaging protocol: XR Left femur. Views: 2 views. COMPARISON: CR LEFT KNEE LIMITED 1 OR 2 VIEWS 11/18/2016 11:01 FINDINGS: Bones/joints: The femur appears intact. Mild degenerative changes in the left hip. A small effusion is suspected in the knee. Soft tissues: A tiny benign-appearing enthesophyte is suspected adjacent to the greater trochanter. IMPRESSION: 1. The femur appears intact. Mild degenerative changes in the left hip. 2. A small effusion is suspected in the knee. Thank you for allowing us to participate in the care of your patient. Dictated and Authenticated by: Ashly Huggins MD Discussed x-ray results with patient who verbalized understanding. Will place an Lonnie bandage, hinged knee brace and give patient crutches. Patient demonstrated proper use prior to discharge. Discussed follow-up with orthopedics in 1 to 2 weeks if any increasing pain or concerns. Patient was given 2 tablets of tramadol to go prior to discharge. HPI General Mode of arrival: wheelchair. Date/Time Provider Initiated Documentation: 06/17/20 19:11. Limitations to Documentation: no limitations. Information obtained by: patient. HPI Narrative: 64-year-old male presents to the ED with chief complaint of left thigh pain after a fall earlier prior to arrival. Patient states he slipped on the ice and fell backwards with his knee bent in front of him. He is complaining of left proximal above the knee pain. He denies any loss of consciousness no neck or back pain no other injuries noted. He has a history of hypothyroidism. He is alert and oriented on initial exam. Related Data Home Medications Medication Instructions Recorded Confirmed gabapentin 600 mg PO TID 02/17/17 06/17/20 cyanocobalamin (vitamin B-12) 1,000 mcg PO DAILY 05/07/20 06/17/20 [Vitamin B-12] levothyroxine 50 mcg PO DAILY 05/07/20 06/17/20 duloxetine 40 mg PO DAILY 06/17/20 06/17/20 Allergies Allergy/AdvReac Type Severity Reaction Status Date / Time No Known Drug Allergies Allergy Unverified 05/07/20 15:52 General LEANNA: 4 Review of Systems Narrative: Constitutional: Negative for weight loss, alert and oriented, well groomed, normal body habitus, appears comfortable. HEENT: Denies trauma, headaches, blurry vision, nasal discharge, sore throat, trouble swallowing. Chest: Denies chest pain, palpitations, irregular rhythm, hypertension. Respiratory: Denies Shortness of breath, cough, hemoptysis. GI: Denies abdominal pain, nausea, vomiting, diarrhea, constipation. Musculoskeletal: Complaining of left leg pain after a slip and fall prior to arrival. : Denies dysuria, hematuria, flank pain, rectal bleeding. Neuro: Denies dizziness, blurry vision, weakness, syncope, headache or facial numbness. Hematologic: Denies easy bruising, intolerance to heat or cold, hair loss. [facility] Medical History (Updated 06/17/20 @ 20:16 by Mela Gunter) Arthralgia Exertional shortness of breath History of kidney cancer Hypertension Knee joint pain MRSA (methicillin resistant staph aureus) culture positive Peripheral neuropathy Pes cavus Reactive depression (situational) Tinnitus Surgical History Colonoscopy - IV Sedation 2008-normal Social History Smoking/Tobacco Use Status: Never Smoking risk assessment performed?: Yes Alcohol Intake: never Drug use: Occasionally Substance use type: marijuana Do you feel safe at home: Yes Do you feel safe in your relationship?: Yes Exam Narrative Exam Narrative: Constitutional: Alert and oriented x3. Appears stated age. Normal body habitus. Head: Normocephalic, no trauma. Eyes: Pupils PERRLA, Red reflex noted, EOM's intact. Eyelids symmetrical without lesions, discharge, or swelling. ENT: Bilateral TM's WNL, External ear normal to inspection, no mastoid TTP, swelling, or erythema, Nasal turbinates WNL, no nasal discharge. Normal dentition, Posterior pharynx WNL, no exudate. Chest: RRR, Normal S1, S2, distal pulses intact. Resp: Lungs clear to auscultation bilaterally, no wheezes, rales, or rhonchi. Musculoskeletal: Unable to assess gait tenderness with palpation to distal left femur. Swelling noted to anterior thigh, extending mid thigh down to proximal knee. No obvious deformity. Skin: No suspicious rashes or lesions. Capillary refill less than 2 sec. Neurologic: Cranial nerves II-XII intact. Alert and oriented x 3. DTR's intact. Hematologic/Lymphatic: No ecchymosis, no lymphadenopathy.
[2020-06-17 19:19] VITALS: BP 147/93; PULSE 94; TEMP 36; O2SAT 97
[2020-06-17] MEDS: oxyCODONE 5 mg/Acetaminophen 325 mg TAB 1 TAB PO (19:28)
--- NOTE | 2020-06-17 20:02 | DI.VRAD_ITS ---
PROCEDURE INFORMATION: Exam: XR Left Femur Exam date and time: 06/17/2020 19:17 Age: 64 years old Clinical indication: Injury or trauma; Blunt trauma; Thigh or upper leg; Left; Patient HX: Fall, R/O fracture TECHNIQUE: Imaging protocol: XR Left femur. Views: 2 views. COMPARISON: CR LEFT KNEE LIMITED 1 OR 2 VIEWS 11/18/2016 11:01 FINDINGS: Bones/joints: The femur appears intact. Mild degenerative changes in the left hip. A small effusion is suspected in the knee. Soft tissues: A tiny benign-appearing enthesophyte is suspected adjacent to the greater trochanter. IMPRESSION: 1. The femur appears intact. Mild degenerative changes in the left hip. 2. A small effusion is suspected in the knee. Dictated and Authenticated by: Ashly Huggins MD. Ordering:NITIN Plaza MD
--- NOTE | 2020-06-17 20:22 | NUR.NOTE ---
sent referral to ortho. Nursing Note:
== END 2020-06-17 20:41 | disposition home or self-care (01) ==
LOC: ER 20:37
PROVIDERS: Emergency Provider Registered Nurse Emergency; PCP Internal Medicine
DX: S76.912A Strain of unspecified muscles, fascia and tendons at thigh level, left thigh, initial encounter (principal); W00.0XXA Fall on same level due to ice and snow, initial encounter; I10 Essential (primary) hypertension
CPT/HCPCS: 29505; 73552; 99283; E0114; L1810

== ENCOUNTER 2021-03-22 11:39 | Outpatient (REF) | payer MEDICARE, SELFPAY ==
[2021-03-22 13:43] LABS: HCT 46.8 % (40.0-50.0); HGB 15.3 g/dL (13.5-17.5); MCH 32.6 pg (27.0-33.0); MCHC 32.7 % (32.0-36.0); MCV 99.8 fL (80-95); Platelet Count 228 10^3/uL (130-400); RBC 4.69 10^6/uL (4.36-5.78); RDW 13.2 % (11.8-14.1); RDW-SD 48.6 fL; WBC 6.49 10^3/uL (4.4-10.8)
[2021-03-22 14:17] LABS: ALT 33 U/L (16-63); AST 25 U/L (15-37); Albumin 4.2 g/dL (3.4-5.0); Alkaline Phosphatase 69 U/L (46-116); Anion Gap 11.2 mmol/L (3-11); BUN 23 mg/dL (7-18); Bilirubin, Total 0.3 mg/dL (0.2-1.0); CO2 24.8 mmol/L (21.0-32.0); CREATININE 1.3 mg/dL (0.70-1.30); Calcium 9.3 mg/dL (8.5-10.1); Chloride 102 mmol/L (98-107); Cholesterol 267 mg/dL (<200); Estimated GFR 55.75 (mL/min/1.73m2); Glucose 97 mg/dL (74-106); HDL Cholesterol 31 mg/dL (40-60); Potassium 4.8 mmol/L (3.5-5.1); Sodium 138 mmol/L (136-145); TSH 2.44 uIU/mL (0.36-3.74); Triglyceride 425 mg/dL (<150)
[2021-03-22 14:33] LABS: LDL CHOLESTEROL 149 mg/dL (<100)
== END 2021-03-22 11:40 | disposition home or self-care (01) ==
LOC: NCHCN 11:39
PROVIDERS: PCP Internal Medicine; Visit Provider Family Medicine
DX: N18.30 Chronic kidney disease, stage 3 unspecified (principal); I10 Essential (primary) hypertension; G60.9 Hereditary and idiopathic neuropathy, unspecified
CPT/HCPCS: 80053; 80061; 83721; 85027; 84443

== ENCOUNTER 2022-03-14 15:29 | Outpatient (REF) | payer MEDICARE, SELFPAY ==
[2022-03-14 15:47] LABS: HCT 45.7 % (40.0-50.0); HGB 15.3 g/dL (13.5-17.5); MCH 32.4 pg (27.0-33.0); MCHC 33.5 % (32.0-36.0); MCV 97 fL (80-95); MPV 11.2 fL (8.0-11.0); Platelet Count 222 10^3/uL (130-400); RBC 4.72 10^6/uL (4.36-5.78); RDW 13.2 % (11.8-14.1); RDW-SD 46.6 fL
[2022-03-14 16:07] LABS: ALT 29 U/L (16-63); AST 14 U/L (15-37); Albumin 4.1 g/dL (3.4-5.0); Alkaline Phosphatase 72 U/L (46-116); Anion Gap 8.7 mmol/L (3-11); BUN 25 mg/dL (7-18); Bilirubin, Total 0.3 mg/dL (0.2-1.0); CO2 26.3 mmol/L (21.0-32.0); CREATININE 1.5 mg/dL (0.70-1.30); Calcium 9.4 mg/dL (8.5-10.1); Calculated LDL 162 mg/dL (<100); Chloride 103 mmol/L (98-107); Cholesterol 259 mg/dL (<200); Estimated GFR 47.12 (mL/min/1.73m2); Glucose 108 mg/dL (74-106); HDL Cholesterol 37 mg/dL (40-60); Potassium 4.8 mmol/L (3.5-5.1); Sodium 138 mmol/L (136-145); TSH 2.79 uIU/mL (0.36-3.74); Triglyceride 303 mg/dL (<150)
== END 2022-03-14 15:30 | disposition home or self-care (01) ==
LOC: NCHCN 15:29
PROVIDERS: PCP Internal Medicine; Visit Provider Family Medicine
DX: E03.9 Hypothyroidism, unspecified (principal); I10 Essential (primary) hypertension; N18.30 Chronic kidney disease, stage 3 unspecified
CPT/HCPCS: 80053; 80061; 85027; 84443

== ENCOUNTER 2022-04-19 16:43 | Outpatient (REF) | payer MEDICARE, SELFPAY ==
[2022-04-19 14:56] LABS: ALT 39 U/L (16-63); AST 26 U/L (15-37); Anion Gap 7.4 mmol/L (3-11); BUN 18 mg/dL (7-18); CO2 29.6 mmol/L (21.0-32.0); CREATININE 1.3 mg/dL (0.70-1.30); Calcium 9.2 mg/dL (8.5-10.1); Chloride 103 mmol/L (98-107); Estimated GFR 61.35 (mL/min/1.73m2); Glucose 115 mg/dL (74-106); Potassium 4.9 mmol/L (3.5-5.1); Sodium 140 mmol/L (136-145)
== END 2022-04-19 16:44 | disposition home or self-care (01) ==
LOC: NCHCN 16:43
PROVIDERS: PCP Internal Medicine; Visit Provider Family Medicine
DX: I10 Essential (primary) hypertension (principal); N18.30 Chronic kidney disease, stage 3 unspecified
CPT/HCPCS: 80048; 84450; 84460

== ENCOUNTER 2022-12-07 08:53 | Outpatient (REF) | payer MEDICARE, SELFPAY ==
[2022-12-07 15:18] LABS: ALT 41 U/L (16-63); AST 29 U/L (15-37); Albumin 4.2 g/dL (3.4-5.0); Alkaline Phosphatase 63 U/L (46-116); Anion Gap 8.2 mmol/L (3-11); BUN 29 mg/dL (7-18); Bilirubin, Total 0.5 mg/dL (0.2-1.0); CO2 29.8 mmol/L (21.0-32.0); CREATININE 1.5 mg/dL (0.70-1.30); Calcium 9.5 mg/dL (8.5-10.1); Calculated LDL 98 mg/dL (<100); Chloride 101 mmol/L (98-107); Cholesterol 203 mg/dL (<200); Estimated GFR 51.67 (mL/min/1.73m2); Glucose 104 mg/dL (74-106); HDL Cholesterol 37 mg/dL (40-60); Potassium 5.1 mmol/L (3.5-5.1); Sodium 139 mmol/L (136-145); TSH (W/Ref FT4) 2.33 uIU/mL (0.36-3.74); Total Protein 7.9 g/dL (6.4-8.2); Triglyceride 344 mg/dL (<150)
== END 2022-12-07 08:54 | disposition home or self-care (01) ==
LOC: NCHCN 08:53
PROVIDERS: PCP Internal Medicine; Visit Provider Family Medicine
DX: Z00.00 Encounter for general adult medical examination without abnormal findings (principal); R73.03 Prediabetes; I10 Essential (primary) hypertension; N18.30 Chronic kidney disease, stage 3 unspecified; E03.9 Hypothyroidism, unspecified; E66.9 Obesity, unspecified
CPT/HCPCS: 80053; 80061; 83036; 84443

== ENCOUNTER 2023-06-20 09:44 | Outpatient (REF) | payer MEDICARE, SELFPAY ==
[2023-06-20 21:32] LABS: Anion Gap 10.2 mmol/L (3-11); BUN 20 mg/dL (7-18); CO2 26.8 mmol/L (21.0-32.0); CREATININE 1.1 mg/dL (0.70-1.30); Calcium 9.6 mg/dL (8.5-10.1); Chloride 101 mmol/L (98-107); Glucose 92 mg/dL (74-106); Potassium 3.8 mmol/L (3.5-5.1); Sodium 138 mmol/L (136-145)
== END 2023-06-20 09:45 ==
LOC: NCHCN 09:44
PROVIDERS: PCP Internal Medicine; Visit Provider Family Medicine
DX: I10 Essential (primary) hypertension (principal); R73.03 Prediabetes
CPT/HCPCS: 80048

== ENCOUNTER 2023-12-12 14:52 | Outpatient (REF) | payer MEDICARE, SELFPAY ==
[2023-12-12 15:13] LABS: ALT 37 U/L (16-63); AST 24 U/L (15-37); Alkaline Phosphatase 68 U/L (46-116); Anion Gap 6.4 mmol/L (3-11); BUN 27 mg/dL (7-18); Bilirubin, Total 0.3 mg/dL (0.2-1.0); CO2 27.6 mmol/L (21.0-32.0); CREATININE 1.5 mg/dL (0.70-1.30); Calcium 9.3 mg/dL (8.5-10.1); Calculated LDL 104 mg/dL (<100); Chloride 104 mmol/L (98-107); Cholesterol 188 mg/dL (<200); Estimated GFR 51.03 (mL/min/1.73m2); Glucose 102 mg/dL (74-106); HDL Cholesterol 35 mg/dL (40-60); Sodium 138 mmol/L (136-145); TSH 1.79 uIU/Ml (0.36-3.74); Total Protein 7.4 g/dL (6.4-8.2); Triglyceride 249 mg/dL (<150)
== END 2023-12-12 14:53 | disposition home or self-care (01) ==
LOC: NCHCN 14:52
PROVIDERS: PCP Internal Medicine; Visit Provider Family Medicine
DX: N18.30 Chronic kidney disease, stage 3 unspecified (principal); E78.5 Hyperlipidemia, unspecified; E03.9 Hypothyroidism, unspecified
CPT/HCPCS: 80053; 80061; 84443

== ENCOUNTER 2024-06-20 09:46 | Outpatient (REF) | payer MEDICARE, SELFPAY ==
--- OUTSIDE RECORDS SUMMARY | 2024-06-20 09:58 | XMS_ITS | Clinical Summary ---
Author Organization [facility] Address [address] [place] [address] Care Team Providers Care Dependency Counselor Name Role Phone Unknown, Provider MD Primary Care Provider Unava ilable Social History Tobacco Use Types Packs/Day Years Used Date Smoking Tobacco: Never Assessed Interpersonal Safety Answer Date Record ed Physically Hurt Never 03/16/2020 Verbally Threaten Not on file 03/16/2020 Sex and Gender Information Value Date Recorded Sex Assigned at Not on file Gender Identity Not on file Sexual Orientation Not on file Plan of Treatment Health Maintenance Due Date Last Done Comments Hepatitis C Screen 1955 RSV Immunization ( o r 60+ Years) (1 - 1-dose 60+ series) 2017 Fall Risk Screening 2022 COVID-19 Vaccine (2022-24 season) 2023 Care Teams Dependency Counselor Relationship Specialty Start Date End Date Unknown, Provider, PCP - General 04/09/18
--- OUTSIDE RECORDS SUMMARY | 2024-06-20 09:59 | XMS_ITS | Encounter Summary ---
Author Organization [facility] Address [address] [place] [address] Care Team Providers Care Supervisor Coin Machine Name Role Phone Unknown, Provider Primary Care Provider Unava ilable Encounter Details Date Type Department Care Team (Late st Contact Info) Description 04/09/2018 Results Only [facility] [phone] Shefali Arguello MD [address] [place] [address] [address] [place], [place] [id number] Social History Tobacco Use Types Packs/Day Years Used Date Smoking Tobacco: Never Assessed Sex and Gender Information Value Date Recorded Sex Assigned at Not on file Gender Identity Not on file Sexual Orientation Not on file documented as of this encounter Plan of Treatment Not on file documented as of this encounter Procedures Procedure Name Priority Date/Time Associated Diagnosis Comments SURGICAL PATHOLOGY Routine 04/09/2018 8:32 EDT documented in this encounter Results * SURGICAL PATHOLOGY (04/09/2018 8:32 EDT) Pathology Report: SURGICAL PATHOLOGY REPORT Reports generated via electronic interface contain original data; however they are lacking the format of the original report. Caution should be taken when reading/interpret ing unformatted reports. Name: ? ANA HERNANDEZ JR ? Accession #: ? [id number] ? : ? 1955 (Age: 62) ??M ? Collect Date: ? 04/09/2018 ? Location: ? [facility] ? Receive Date: ? 04/09/2018 ? Provider: SHEFALI ARGUELLO MD Copy to: NOLVIA GUPTA MD ? Final Pathologic Diagnosis: RECTUM POLYP, POLYPECTOMY: - Tubular adenoma. ?? Document reviewed and electronically signed by: DIANE DAVILA MD Report ??Date: 04/11/2018 14:23 By the signature above, the attending physician certifies that he/she has personally conducted a gross and/or microscopic examination of the described specimens and rendered or confirmed the above diagnosis. Specimen(s) Received: Rectal polyp Clinical History: Diverticulosis and polyp Gross Description: ? Received in formalin labelled with proper patient identification (initials C, R) and rectal polyp is a single light coto tissue fragment (0.5 x 0.3 x 0.1 cm). Submitted intact in 1. Miraymon Vargas 04/10/2018 8:44 AM End of Report [facility] 04/09/2018 8:32 EDT 04/09/2018 8:32 EDT Shefali Arguello MD PATHOLOGY ORDERA LOC [facility] [address] [place] [address] documented in this encounter Visit Diagnoses Not on filedocumented in this encounter Care Teams Supervisor Coin Machine Relationship Specialty Start Date End Date Unknown, Provider, PCP - General 04/09/18 documented as of this encounter
--- OUTSIDE RECORDS SUMMARY | 2024-06-20 09:59 | XMS_ITS | Encounter Summary ---
Author Organization [facility] Address [facility] [place] [address] Care Team Providers Care Centrifuge Separator Operator Name Role Phone Arsalan Monroe MD Primary Care Provider Reason for Visit * Consultation (Routine) - Closed Specialty Diagnoses / Procedures Referred By Franco fernandez Referred To Contact Neurology Diagnoses Bilateral sensory neuropathy Arsalan Monroe MD [address] [place] [address] [facility] [address] [place] [address] Referral ID Status Reason Start Date Expiration Date V isits Requested Visits Authorized [id number] Closed Consult, [facility] 09/27/2016 09/27/2017 1 1 Encounter Details Date Type Department Care Team (Latest Contact Info) Description 10/19/2016 7:45 AM EST [place] [address] Otto Camilo MD [facility] [place] [address] Hereditary sensorimotor neuropathy Social History Tobacco Use Types Packs/Day Years Used Date Smoking Tobacco: Never Smokeless Tobacco: Never Alcohol Use Standard Drinks/Week Comments No 0 (1 standard drink = 0.6 oz pur e alcohol) Sex and Gender Information Value Date Recorded Sex Assigned at Not on file Gender Identity Not on file Sexual Orientation Not on file documented as of this encounter Last Filed Vital Signs Vital Sign Reading Time Taken Comments Blood Pressure 156/96 10/19/2016 7:28 AM EST Pulse 69 10/19/2016 7:28 AM EST Temperature - - Respiratory Rate - - Oxygen Saturation - - Inhaled Oxygen Concentration - - Weight 117.9 kg (260 lb) 10/19/2016 7:28 AM EST Height 180.3 cm (5' 11) 10/19/2016 7:28 AM EST reported Body Mass Index 36.26 10/19/2016 7:28 AM EST documented in this encounter Progress Notes * Otto Camilo MD - 10/19/2016 7:45 AM EST NEUROLOGY CLINIC [facility] [place] [address] Facsimile: 10/19/2016 Patient name: Xu Hernandez Date of : 1955 Referring provider: Arsalan Monroe MD [address] [place] [address] HISTORY OF PRESENTING COMPLAINTS: 60 Y M referred for evaluation of neuropathy. He says that symptoms have been going on for around 2years. He has pain/ paresthesiae and numbness of both feet. He also has pain around knee on left side which makes it difficult for him to walk. The symptoms have been progressively getting worse for the past 2 years. His legs fall asleep and his endurance has diminished to the point that he is unable to work any more. He feels a constant tightness in his legs. He can't walk uphill. His father anduncle have history of severe neuropathy.He has been taking gabapentin 300 TID which hasn't been helping enough. He has trouble sleeping as symptoms worsen at night. He has history of renal cancer 10 years ago for which he had surgery done. He is borderline diabetic. His says he has gained weight recently. His activity has been reduced due to the pains. He used to work in construction. He lives with his in [place]. He has 2 daughters and one son. He doesn't smoke or drink alcohol. He snores at night. He has left knee pain. No significant back pain. ROS: otherwise negative PMHx: History reviewed. No pertinent past medical history. History reviewed. No pertinent surgical history. Medications: No current outpatient prescriptions on file prior to visit. No current facility-administered medications on file prior to visit. Allergies: No Known Allergies Family History: History reviewed. No pertinent family history. Social History: reports that he has never smoked. He has never used smokeless tobacco. He reports that he does not drink alcohol or use illicit drugs. No flowsheet data found. Vitals: BP (!) 156/96 (BP Location (NBP): Right arm, Patient Position: Sitting, BP Cuff Sizes: Large Adult (32-43 cm)) Pulse 69 Ht 180.3 cm (5' 11) Comment: reported Wt (!) 117.9 kg (260 lb) BMI 36.26 kg/m2 Physical Examination: General and Systemic: Moderately built and nourished. Lungs clear. S1S2 normal. Crowded airway Neurological Examination o Higher functions: - Speech: fluent, no aphasia/dysarthria or dysphonia - Alert and oriented. o Cranial Nerves - II-XII: Pupils bilaterally equal and symmetric conjugate gaze, reacting to light. No ptosis/nystagmus. Vision normal. No field deficits. EOMI. No facial droop. No weakness of jaw/uvula/ palate - Fundus: Normal vessels and disc margins. o Reflexes - +2 Bilaterally biceps, knee and L ankle. Absent R ankle. o Motor and Coordination - Normal tone, bulk strength and coordination of right and left sided muscles o Sensory - Reduced temperature and vibration sensation below knee. o Skull and Spine/ Gait - Normal - Normal gait - Tandem: Imbalance + LABS/IMAGING: EMG/NCS: Absent sural, low amplitude radial sensory left. Low amplitude peroneals bilaterally. Tibial f waves slightly prolonged. ASSESSMENT: 60 Y M with history of renal cancer, borderline DM referred for evaluation of neuropathy symptoms. Symptoms going on for 2 years and progressively getting worse. There is family history of neuropathy in his father. On examination he has reduced sensation below his knee bilaterally and imbalance on sharpened romberg. EDX study shows evidence of moderate peripheral neuropathy predominantly axonal in nature. IMPRESSION: 1) Moderate Generalized Peripheral neuropathy Hereditary + Metabolic ( borderline DM) related. 2) Left knee osteoarthritis. DJD L spine. 4) Obesity, Borderline DM 3) ROBERT + ? COPD PLAN/RECOMMENDATIONS: He seems to have moderate neuropathy secondary to hereditary components and possible borderline DM. Recommended increasing gabapentin to 600 TID. May add amitriptyline 25 mg HS if symptoms remain controlled. He possibly has Left knee osteoarthritis and DJD L spine which is probably contributing to some of his symptoms He needs workup for ROBERT/ COPD B complex supplements advised. Weight loss should help with his symptoms. Follow up as needed. Otto Camilo MD Department of Neurology [facility] documented in this encounter Plan of Treatment Not on file documented as of this encounter Visit Diagnoses Diagnosis Hereditary sensorimotor neuropathy documented in this encounter Care Teams Centrifuge Separator Operator Relationship Specialty Start Date End Date Arsalan Monroe MD [address] [place] [address] PCP - General Internal Medicine 09/27/16 documented as of this encounter
--- OUTSIDE RECORDS SUMMARY | 2024-06-20 09:59 | XMS_ITS | Encounter Summary ---
Author Organization [facility] Address [address] [place] [address] Care Team Providers Care Polymerization Supervisor Name Role Phone Unknown, Provider Primary Care Provider Unava ilable Encounter Details Date Type Department Care Team (Latest Contact Info) Description 04/09/2018 16:48 EDT - 04/09/2018 23:59 EDT Hospital Encounter [address] [address] Unknown, ProviderMD Discharge Disposition: Home or Self Care Social History Tobacco Use Types Packs/Day Years Used Date Smoking Tobacco: Never Assessed Sex and Gender Information Value Date Recorded Sex Assigned at Not on file Gender Identity Not on file Sexual Orientation Not on file documented as of this encounter Discharge Disposition Disposition Code Departure Means Destination Home or Self Longterm documented in this encounter Plan of Treatment Not on file documented as of this encounter Visit Diagnoses Not on filedocumented in this encounter Care Teams Polymerization Supervisor Relationship Specialty Start Date End Date Unknown, ProviderMD PCP - General 04/09/18 documented as of this encounter
--- OUTSIDE RECORDS SUMMARY | 2024-06-20 09:59 | XMS_ITS | Referral Summary ---
Author Organization [facility] Address [address] [place] [address] Care Team Providers Care Mail Teller Name Role Phone Unknown, Provider MD Primary [...] Orientation Not on file Plan of Treatment Not on file Care Teams Mail Teller Relationship Specialty Start Date End Date Unknown, Provider, PCP - General 04/09/18
--- OUTSIDE RECORDS SUMMARY | 2024-06-20 09:59 | XMS_ITS | Encounter Summary ---
Author Organization [facility] [place] [address] Care Team Providers Care Drapery Examiner Name Role Phone Arsalan Monroe MD Primary Care Provider Encounter Details Date Type Department Care Team (Late st Contact Info) Description 10/20/2016 External Results Neurology at [facility] [place] [address] [place] [address] Social History Tobacco Use Types Packs/Day Years [...] Procedure Name Priority Date/Time Associated Diagnosis Comments EMG SCAN Routine 10/19/2016 documented in this encounter Results * Scan Doc: EMG (10/19/2016) Otto Camilo MD MEDIA MGR SCAN EXT O RDR/RSLT documented in this encounter Visit Diagnoses Not on filedocumented in this encounter Care Teams Drapery Examiner Relationship Specialty Start Date End Date Arsalan Monroe MD [address] [place] [address] PCP - General Internal Medicine 09/27/16 documented as of this encounter
--- OUTSIDE RECORDS SUMMARY | 2024-06-20 09:59 | XMS_ITS | Clinical Summary ---
Author Organization [facility] [place] [address] Care Team Providers Care Auto Damage Estimator Name Role Phone Arsalan Monroe MD Primary Care Provider Allergies No known active allergies Medications Medication Sig Dispensed Refills Start Date End Date Status gabapentin (NEURONTIN) 300 mg Capsule Take 300 mg by mouth 3 times daily. Active lisinopril (PRINIVIL;ZESTRIL) 10 mg Tablet Take 10 mg by mouth daily. Active Family History Medical History Relation Comments Neuropathy Father Neuropathy Paternal Uncle Relation Status Comments Father Paternal Uncle Social History Tobacco Use Types Packs/Day Years Used Date Smoking Tobacco: Never Smokeless Tobacco: Never Alcohol Use Standard Drinks/Week Comments No 0 (1 standard drink = 0.6 oz pur e alcohol) Sex and Gender Information Value Date Recorded Sex Assigned at Not on file Gender Identity Not on file Sexual Orientation Not on file Last Filed Vital Signs Vital Sign Reading [...] Mass Index 36.26 10/19/2016 7:28 AM EST Plan of Treatment Health Maintenance Due Date Last Done Comments CT Colonography 1955 Colonoscopy 1955 Colorectal Cancer Screening 1955 FIT DNA 1955 FIT 1955 Sigmoidoscopy (10 year) with FIT yearly 1955 Sigmoidoscopy 1955 Hepatitis C Screening 12/09/1975 Lipid Screening 12/09/1975 Tetanus/Diphtheria/Pertussis Vaccines (1 - Tdap) 12/08 Zoster vaccine (1 of 2) 12/09/2007 Advance Directive 2012 Pneumoccocal Vaccine: 65+ (1 of 1 - PCV) 2022 Covid-19 Vaccine (1 - 2022-24 season) 2024 Influenza (Flu) vaccine (1 o f 1 - Influenza standard series) 04/14/2024 Care Teams Auto Damage Estimator Relationship Specialty Start Date End Date Arsalan Monroe MD [address] [place] [address] PCP - General Internal Medicine 09/27/16
[2024-06-20 15:17] LABS: Anion Gap 10.4 mmol/L (3-11); BUN 24 mg/dL (7-18); CO2 26.6 mmol/L (21.0-32.0); CREATININE 1.3 mg/dL (0.70-1.30); Chloride 104 mmol/L (98-107); Estimated GFR 60.59 (mL/min/1.73m2); Glucose 97 mg/dL (74-106); Potassium 4.7 mmol/L (3.5-5.1); Sodium 141 mmol/L (136-145)
== END 2024-06-20 09:47 | disposition home or self-care (01) ==
LOC: NCHCN 09:46
PROVIDERS: PCP Family Medicine; Visit Provider Family Medicine
DX: I10 Essential (primary) hypertension (principal)
CPT/HCPCS: 80048

== ENCOUNTER 2025-01-01 17:37 | Outpatient (REF) | payer MEDICARE, SELFPAY ==
[2025-01-01 20:53] LABS: HCT 44.4 % (40.0-50.0); HGB 14.8 g/dL (13.5-17.5); MCH 33.3 pg (27.0-33.0); MCHC 33.3 % (32.0-36.0); MCV 100 fL (80-95); MPV 10.7 fL (8.0-11.0); Platelet Count 238 10^3/uL (130-400); RBC 4.44 10^6/uL (4.36-5.78); RDW 13.2 % (11.8-14.1); RDW-SD 48.4 fL; WBC 8.88 10^3/uL (4.4-10.8)
[2025-01-01 22:25] LABS: ALT 40 U/L (16-63); AST 30 U/L (15-37); Albumin 4.5 g/dL (3.4-5.0); Alkaline Phosphatase 69 U/L (46-116); Anion Gap 7.2 mmol/L (3-11); BUN 20 mg/dL (7-18); Bilirubin, Total 0.4 mg/dL (0.2-1.0); CO2 28.8 mmol/L (21.0-32.0); CREATININE 1.4 mg/dL (0.70-1.30); Chloride 101 mmol/L (98-107); Estimated GFR 55.09 (mL/min/1.73m2); Glucose 92 mg/dL (74-106); Potassium 4.6 mmol/L (3.5-5.1); Sodium 137 mmol/L (136-145); TSH (W/Ref FT4) 2.76 uIU/mL (0.36-3.74)
== END 2025-01-01 17:38 | disposition home or self-care (01) ==
LOC: NCHCN 17:37
PROVIDERS: PCP Family Medicine; Visit Provider Family Medicine
DX: I10 Essential (primary) hypertension (principal); N18.30 Chronic kidney disease, stage 3 unspecified; E03.9 Hypothyroidism, unspecified
CPT/HCPCS: 80053; 85027; 84443

== ENCOUNTER → 2025-02-06 14:13 | Outpatient (BNVA) | payer MEDICARE, SELFPAY | PROVIDERS: PCP Family Medicine; Referring Provider Family Medicine; Visit Provider Physical Therapy Assistant | DX: Z12.11 Encounter for screening for malignant neoplasm of colon (principal); Z86.0109 Personal history of other colon polyps | CPT/HCPCS: S0285 ==

== ENCOUNTER 2025-02-17 12:30 | Day surgery (SDC) | payer MEDICARE, SELFPAY ==
--- NOTE | 2025-02-17 12:25 | W.ANESPRE ---
General Info Date of Service Date Performed: 02/17/25 Height: 5 ft 11 in Weight: 126 kg Body Mass Index (BMI): 38.7 Surgical Procedure: Operation Date: 02/17/25 13:05 Proposed Procedure Side Surgeon p Gisele Mason MD Meds Allergies and Home Medications Allergies Allergy/AdvReac Type Severity Reaction Status Date / Time No Known Drug Allergies Allergy Unknown Unverified 02/17/25 13:10 Home Medication ?Medication ?Instructions ?Recorded gabapentin 600 mg tablet 600 mg PO TID 02/17/17 cyanocobalamin (vitamin B-12) 1,000 mcg PO DAILY 05/07/20 1,000 mcg tablet (Vitamin B-12) levothyroxine 50 mcg tablet 50 mcg PO DAILY 05/07/20 duloxetine 30 mg capsule,delayed 40 mg PO DAILY 06/17/20 release lisinopril 10 1 tab PO DAILY 03/02/23 mg-hydrochlorothiazide 12.5 mg tablet omega 4-fok-nei-fish oil 120 1 cap PO DAILY 03/02/23 mg-180 mg-500 mg capsule (Fish Oil) simvastatin 20 mg tablet 20 mg PO QHS 03/02/23 bisacodyl 5 mg tablet,delayed 5 mg PO ONCE #4 tabs 02/06/25 release (Dulcolax (bisacodyl)) Current Visit Medications: Current Medications Generic Name Dose Route Start Last Admin Trade Name Freq PRN Reason Stop Dose Admin Ringer's Solution 1,000 mls @ 80 mls/hr 02/17/25 06:00 IV 02/17/25 23:59 INFUSION BHARAT IV Miscellaneous Supplies 1 each 02/17/25 06:00 Iv Access IV 02/17/25 23:59 DIRECTED BHARAT Sodium Chloride 0 ml 02/17/25 06:00 Normal Saline Flush 10 Ml Syr IV 02/17/25 23:59 PRN PRN Sodium Chloride 0 ml 02/17/25 06:00 Normal Saline 10 Ml Vial IJ 02/17/25 23:59 DIRECTED PRN Sterile Water 0 ml 02/17/25 06:00 Water,Injection,Sterile 10 Ml Vial IJ 02/17/25 23:59 DIRECTED PRN PFSH Active Problems Active Problems: Problem Status Onset Code Hyperlipidemia Acute E78.5 Chronic kidney disease, stage 3 Acute N18.30 Acute dehydration Acute E86.0 Pneumonia Acute J18.9 Syncope Chronic R55 Medical History Medical History Essential hypertension History of prediabetes Pes cavus Tinnitus Hypertension MRSA (methicillin resistant staph aureus) culture positive Peripheral neuropathy History of kidney cancer Reactive depression (situational) Exertional shortness of breath Knee joint pain Arthralgia Surgical History Surgical History History of nephrectomy, right Colonoscopy - IV Sedation 2008-normal Tobacco Smoking/Tobacco Use Status: Never Alcohol Alcohol Intake: never Substance Use Substance use: Occasionally Substance use type: marijuana Vital Signs and Lab Results Vital Signs Most Recent Vital Signs in EMR: Temp Pulse Resp BP Pulse Ox 36.1 C L 78 20 140/99 H 96 02/17/25 12:55 02/17/25 12:55 02/17/25 12:55 02/17/25 12:55 02/17/25 12:55 Anesthesia Assessment and Plan Anesthesia History Personal History: No History of Anesthesia Complications Family History: No Family History of Anesthesia Complications Exercise Tolerance Exercise Tolerance: Metabolic Equivalents>4 Cardiac & Pulmonary Exam Cardiac Exam: Normal S1/S2 Heart Sounds Pulmonary Exam: Clear Bilateral Breath Sounds Implantable Cardiac Device Does patient have a Pacemaker or an ICD?: No Airway Exam Known Difficult Airway: No Mallampati Class: 3 Mouth Opening: Normal (> 3cm) Thyromental Distance: Greater than 3 cm Neck Range of Motion: Limited ROM Neck Circumference: Thick Teeth Condition: Generalized Poor Dentition and Loose or Chipped ASA Classification ASA Score: ASA 2 Emergency Case?: No NPO Status NPO Status: NPO Clears >2 hours, Solids >8 hours Anesthesia Plan Resuscitation Status: Full Code Anesthesia Technique: General Anesthesia Airway Planned: Natural Airway Monitors Used: Standard Monitors Preoperative Comments:: 69 yo male for colo. Sig PMHx: HTN (lisinopril, HCTZ), CKDIII, depression, neuropathy, hypothyroid (on replacement). never smoker. Has not taken any of his medications for the last few days because he didn't know when to stop them. Previous Anes: - colo, fent/midaz, prop, natural airway, no issues. - knee scope, LMA 5, no issues.
[2025-02-17 12:55] VITALS: BP 140/99; PULSE 78; RESP 20; TEMP 36.1; O2SAT 96
[2025-02-17] MEDS: Lactated Ringers 1,000 ML 80 ML IV (13:21)
--- NOTE | 2025-02-17 13:25 | W.PM.DSUDISC ---
Date of service: 02/17/25 Discharge Plan Disposition Patient Disposition: Home Condition: Good Discharge Details Attending Provider: Manuel Mason Primary Care Provider: Marcos Hart Home Meds and New Rx's Prescriptions: No Action bisacodyl [Dulcolax (bisacodyl)] 5 mg tablet,delayed release (DR/EC) 5 mg PO ONCE Qty: 4 0RF Rx Instructions: Take per colonoscopy instructions provided by ordering providers office simvastatin 20 mg tablet 20 mg PO QHS lisinopril-hydrochlorothiazide 10-12.5 mg tablet 1 tab PO DAILY Fish Oil 120-180-500 mg capsule 1 cap PO DAILY gabapentin 600 MG tablet 600 mg PO TID Patient Comments: 06/17/2020 1200 QAM, 600 Noon, 600 HS duloxetine 30 MG capsule,delayed release(DR/EC) 40 mg PO DAILY cyanocobalamin (vitamin B-12) [Vitamin B-12] 1,000 mcg tablet 1,000 mcg PO DAILY Patient Comments: TAKE ONE TABLET BY MOUTH EVERY DAY levothyroxine 50 mcg tablet 50 mcg PO DAILY Discharge Instructions Additional Instructions: FINDINGS: A number of small polyps were found and removed today. They are nothing to worry about. This is why we do the colonoscopies. You probably do need to repeat a colonoscopy in 3 years however. Stand Alone Forms: Anesthesia Discharge Inst., Colonoscopy Post Instructions, Evelin Galloway (DSU) Activity:: Activity as Tolerated Diet:: As Tolerated Discharge Orders Discharge Orders: Discharge Order (Routine); Ordered 02/17/25 Ordered By: Manuel Mason
--- NOTE | 2025-02-17 13:26 | W.COLOREPORT ---
Date of service: 02/17/25 Time of Service: 13:26 Colonoscopy Report Procedure Description: PROCEDURES PERFORMED: 1. Colonoscopy with cold forceps polypectomy x3 2. Hot snare polypectomy x3 PREOPERATIVE DIAGNOSIS: Surveillance colonoscopy, colon polyps POSTOPERATIVE DIAGNOSIS: Colorectal polyps, sigmoid diverticulosis, grade 1 internal hemorrhoids SURGEON: Bharath Mason MD INDICATION FOR PROCEDURE: the patient is a 69-year-old man with a history of tubular adenomatous. No symptoms. Due for surveillance. FINDINGS: Polyps: In the ascending colon, 3x flat, 2-3 mm polyps were removed with cold forceps technique. In the sigmoid colon 2x, flat 3-5 mm polyps were removed with hot snare technique. Another 1 was in the proximal rectum at the rectosigmoid junction. These were all sent together as one specimen. There was moderate diverticular disease in the sigmoid colon. Grade 1 internal hemorrhoids are present in the rectum. SURVEILLANCE interval/FOLLOW-UP: Repeat in 3 years. SPECIMENS: Yes EBL: Minimal COMPLICATIONS: None QUALITY of prep: Excellent Procedure in detail: The patient gave written consent and was in agreement with the indications, the potential risks as well as the benefits of the procedure. They were taken to the endoscopy suite and laid in the left lateral decubitus position. A timeout was performed and anesthesia was administered which was tolerated well. I started the procedure. Digital rectal and visual examination was performed and grossly within normal limits. A well-lubricated flexible colonoscope was then introduced and passed without any notable difficulty all the way to the cecum identified by the ileocecal valve and the appendiceal orifice. The scope was then slowly withdrawn with the above-noted findings. The patient tolerated the procedure well and was taken to the PACU in hemodynamically stable condition.
[2025-02-17 13:27] VITALS: BMI 38.7
--- NOTE | 2025-02-17 14:17 | BOWEL_PTH ---
PATIENT: Xu Hernandez JR LOC: [facility] U#:[id number] AGE/SX: 69/M ROOM: RE02/17/[address]: Manuel Mason : 1955 BED: DIS: 02/17/2025 SPEC #: [id number] RECD: 02/17/25 15:50 STATUS: YRIS REJulianne #: [id number] KASANDRA: 02/17/25 14:[address]: Manuel Mason DEPT: Surgical Specimen RECD BY: Gabriella Mtz ENTERED: 02/17/25 15:51 SP TYPE: Bowel OTHR DR: Marcos Hart Tissues: 1 - BIOPSY BOWEL 2 - BIOPSY BOWEL Procedures: GROSS AND MICRO LEVEL 4 Comments: [id number]
[2025-02-17 14:44] VITALS: BP 119/82; PULSE 77; RESP 17; TEMP 36.5; O2SAT 94
--- NOTE | 2025-02-17 15:09 | W.ANESPOSTOP ---
Postoperative Evaluation Date, Time and Location Date Performed: 02/17/25 Time Performed: 14:49 Patient Location: Day Surgery Unit Vital Signs Most Recent Imported Vital Signs: Most Recent Vital Signs Temp Pulse Resp BP Pulse Ox 36.5 C 77 17 119/82 94 02/17/25 14:44 02/17/25 14:44 02/17/25 14:44 02/17/25 14:44 02/17/25 14:44 Pain Score Most Recent Pain Score: Most Recent Pain Score Pain Level 0 02/17/25 14:44 Assessment Mental Status: Awake (Alert & Oriented to Patient Baseline) Airway and Respiratory Function: Patent airway with normal (patient baseline) respiratory exam Cardiovascular Function: Hemodynamically Stable Hydration Status: Adequately Hydrated Nausea & Vomiting: No Nausea or Vomiting Pain: Pt. Denies Any Pain Peripheral Nerve Block: Patient did not receive a nerve block
[2025-02-17 15:15] VITALS: BP 147/95; PULSE 74; RESP 16; TEMP 36.8; O2SAT 97
== END 2025-02-17 15:33 | disposition home or self-care (01) ==
LOC: SUR 12:30
PROVIDERS: PCP Family Medicine; Visit Provider Student in an Organized Health Care Education/Training Program
PROC: 0DJD8ZZ Inspection of Lower Intestinal Tract, Via Natural or Artificial Opening Endoscopic (ICD-10-PCS; CPT 45378; principal; 2025-02-17 13:00)
DX: Z12.11 Encounter for screening for malignant neoplasm of colon (principal); D12.2 Benign neoplasm of ascending colon; K57.30 Diverticulosis of large intestine without perforation or abscess without bleeding; I12.9 Hypertensive chronic kidney disease with stage 1 through stage 4 chronic kidney disease, or unspecified chronic kidney disease; N18.30 Chronic kidney disease, stage 3 unspecified; K64.0 First degree hemorrhoids
CPT/HCPCS: 45385; 45380; 88305; J2704